=== PATIENT | female | born 1955 | race Hispanic/Latino ===

== ENCOUNTER 2017-12-17 16:01 | Observation (INO) | payer OTHER ==
[~2017-12-17] VITALS: Ht 162.6 cm; Wt 73.2 kg
[~2017-12-17 16:01] MED LIST: ATORVASTATIN CA20 MG PO; CLONIDINE HCL0.2 MG PEG; GABAPENTIN100 MG PO; METFORMIN HCL500 MG PO; OMEPRAZOLE40 MG PO; VASOTEC10 M1 PO; [UNRECOGNIZED DRUG - CODE] SQ
[2017-12-17] MEDS ORDERED: SODIUM CHLORIDE 0.9% 500ML 500 ML IV STA (17:09)
[2017-12-17 17:20] LABS: BASOPHILS # (AUTO) 0.1 (0.0-0.1); BASOPHILS % 0.4 % (0.0-1.0); EOSINOPHILS # (AUTO) 0.2 (0.0-0.4); HEMATOCRIT 31.5 % (34.2-44.1); HEMOGLOBIN 10.4 g/dL (12.0-16.0); LYMPHOCYTES # (AUTO) 2.5 (1.0-3.2); LYMPHOCYTES % 21.1 % (18.0-39.1); MEAN CORPUSCULAR HEMOGLOBIN 29.9 pg (28-32); MEAN CORPUSCULAR VOLUME 90.5 fL (81-99); MONOCYTES # (AUTO) 0.8 (0.2-0.8); MONOCYTES % 6.7 % (4.4-11.3); NEUTROPHILS # (AUTO) 8.3 (2.1-6.9); NEUTROPHILS % 69.5 % (38.7-80.0); PLATELET COUNT 170 x10e3/uL (140-360); RED BLOOD COUNT 3.48 x10e6/uL (3.6-5.1); RED CELL DISTRIBUTION WIDTH 12.7 % (11.7-14.4)
[2017-12-17 17:31] LABS: ALANINE AMINOTRANSFERASE 12 IU/L (0-55); ALBUMIN 3.4 g/dL (3.5-5.0); ALBUMIN/GLOBULIN RATIO 0.9 (0.8-2.0); ALKALINE PHOSPHATASE 94 IU/L (40-150); BLOOD UREA NITROGEN 45 mg/dL (7-26); BUN/CREATININE RATIO 26 (6-25); CALCIUM 9.1 mg/dL (8.4-10.2); CARBON DIOXIDE 23 mmol/L (22-29); CHLORIDE 107 mmol/L (98-107); CREATINE KINASE 102 IU/L (29-168); CREATININE, SERUM 1.72 mg/dL (0.57-1.11); EST GLOMERULAR FILTRATION RATE 30 ML/MIN (60-); GLUCOSE 216 mg/dL (74-118); SODIUM 144 mmol/L (136-145)
--- NOTE | 2017-12-17 18:22 | Diagnostic Imaging Report ---
RIGHT KNEE - 3 VIEWS HISTORY: Swelling, fall, pain COMPARISON: None available. FINDINGS: Bones: Diffusely decreased mineralization of the osseous structures limits bone detail. A mildly comminuted patellar fracture with 1.5 cm distraction of the main fracture fragments. Joints: Mild medial compartment degenerative changes. Soft tissues: Anterior soft tissue swelling. IMPRESSION: Acute, comminuted patellar fracture. Signed by: Dr. Jhonathan Neil D.O., M.M.M. on 12/17/2017 6:18 PM
--- NOTE | 2017-12-17 18:26 | Diagnostic Imaging Report ---
Exam: Head CT without contrast History: Trauma, fall, dizziness Comparison studies: None Technique: Axial images were obtained from the skull base to the vertex. Coronal and sagittal images reconstructed from the axial data. Dose modulation, iterative reconstruction, and/or weight based adjustment of the mA/kV was utilized to reduce the radiation dose to as low as reasonably achievable. Radiation dose: Total DLP: 806 mGy*cm. Estimated effective dose: DLP x 0.015 Intravenous contrast: None Findings: Scalp: No abnormalities. Bones: No fractures, blastic or lytic lesions. Brain sulci: Mildly prominent. Ventricles: Mild compensatory dilatation. No hydrocephalus. Extra-axial spaces: No masses, no fluid collection. Parenchyma: No mass, acute hemorrhage or acute or chronic cortical vascular insults. A few subtle hypodensities in the supratentorial white matter are nonspecific most compatible with chronic microvascular ischemic changes. Sellar/suprasellar region: No abnormalities. Craniocervical junction: Patent foramen magnum. No Chiari one malformation. Incidental findings: Atherosclerotic calcifications in the carotid siphons. Bilateral intraocular lens replacements for previous cataract surgery. Chronic inflammatory changes in the left mastoid air cells which are partially opacified, underpneumatized and with sclerotic changes IMPRESSION: No acute abnormalities. Chronic findings: 1. Mild generalized volume loss. 2. Mild supratentorial microvascular ischemic changes. Signed by: Dr. Jerad Sykes M.D. on 12/17/2017 6:22 PM
[2017-12-17] MEDS: TRAMADOL HCL 50 MG TAB PO PRN (20:23)
[2017-12-17 20:45] VITALS: BP 171/77
[2017-12-17] MEDS ORDERED: LABETALOL HCL100 MG PO (21:33)
[2017-12-17] MEDS ORDERED: FUROSEMIDE40 MG PO (21:33)
[2017-12-17 22:04] VITALS: BP 171/77
--- NOTE | 2017-12-17 22:05 | Diagnostic Imaging Report ---
HUMERUS BILATERAL, HAND THREE VIEWS BILATERAL, FOREARM BILATERAL Comparison: None Clinical history: Fall, Pain of the hands, elbows and shoulders Findings: Limited by portable technique Left humerus, forearm and hand: Lucency along the lateral epicondyle. Age-indeterminate fracture fragment adjacent to the ulnar aspect distal proximal phalanx second digit. Scattered triscaphe and IP degenerative change. Olecranon enthesophyte. Right humerus, forearm and hand: Mineralization is seen along the rotator cuff insertion which can be seen with calcific tendinopathy. Scattered triscaphe and IP degenerative change. Olecranon and medial condyle enthesophyte. Impression: 1. Possible nondisplaced lateral epicondyle fracture, left humerus. Correlate with point tenderness and recommend dedicated nonportable views of the elbow. 2. Age indeterminant fracture of the ulnar aspect distal proximal phalanx second digit, left hand. 3. No acute fracture on the right humerus, forearm or hand. Signed by: Dr Liberty Castle MD on 12/17/2017 10:01 PM
[2017-12-18] VITALS (10 sets, daily range): BP systolic 128–175; BP diastolic 70–78
[2017-12-18 01:09] LABS: CREATINE KINASE 94 IU/L (29-168)
[2017-12-18] MEDS: TRAMADOL HCL 50 MG TAB PO PRN ×3 (02:29→19:51)
[2017-12-18 05:01] LABS: BASOPHILS # (AUTO) 0.1 (0.0-0.1); BASOPHILS % 0.4 % (0.0-1.0); EOSINOPHILS # (AUTO) 0.3 (0.0-0.4); EOSINOPHILS % 2.6 % (0.0-6.0); HEMATOCRIT 29.4 % (34.2-44.1); HEMOGLOBIN 9.7 g/dL (12.0-16.0); LYMPHOCYTES # (AUTO) 2.4 (1.0-3.2); LYMPHOCYTES % 19.5 % (18.0-39.1); MEAN CORPUSCULAR HEMOGLOBIN 30.3 pg (28-32); MEAN CORPUSCULAR VOLUME 91.9 fL (81-99); MONOCYTES # (AUTO) 0.8 (0.2-0.8); MONOCYTES % 6.7 % (4.4-11.3); NEUTROPHILS # (AUTO) 8.6 (2.1-6.9); NEUTROPHILS % 70.4 % (38.7-80.0); PLATELET COUNT 144 x10e3/uL (140-360); RED CELL DISTRIBUTION WIDTH 12.7 % (11.7-14.4)
[2017-12-18 08:58] LABS: CREATINE KINASE 79 IU/L (29-168)
--- NOTE | 2017-12-18 09:09 | Consultation ---
DATE OF CONSULTATION: December 17, 2017 CARDIOLOGY CONSULTATION REASON FOR CONSULTATION: Syncope. HPI: This is a pleasant 62-year-old female that presented status post fall. According to the patient, for 2 weeks she had been having an episode of dizziness, syncope and near fall. The is always around to catch her. She stated yesterday she was getting some for sharp pain. She stated she was going to the mall, felt dizzy and fell, EMS was called. In the ER, she had a CT and x-ray done that showed possible nondisplaced lateral epicondyle fracture and acute patella fracture. CT of the brain showed mild generalized volume loss and microvascular ischemic changes. She denied any chest pain, any palpitations, any shortness of breath, any headache, or diaphoresis. Troponin was negative times 2. EKG showed normal sinus rhythm with no S/T abnormalities. PAST MEDICAL HISTORY: Hypertension, diabetes, hyperlipidemia, gastritis, UTI, and syncope. PAST SURGICAL HISTORY: Cholecystectomy, kidney stone removal and EGD in the past. FAMILY HISTORY: Positive for hypertension and diabetes. SOCIAL HISTORY: No smoking. No drinking. She lives at home with her . MEDICATIONS: She is on atorvastatin, clonidine, Vasotec, Lasix, labetalol, metformin, Protonix, and insulin at home. ALLERGIES: SHE IS ALLERGIC TO DYE. REVIEW OF SYSTEMS: Negative except those mentioned above. She is positive for syncope and fall. PHYSICAL EXAMINATION VITAL SIGNS: Temperature 97, heart rate 78, blood pressure 128/71, respirations 18, oxygen saturation 95% on room air. GENERAL: She is awake, alert and oriented times 3. HEENT: Mucous membranes moist. NECK: Supple. LUNGS: Bilateral clear to auscultation. CARDIOVASCULAR: S1 and S2 present. ABDOMEN: Soft. NEUROLOGICAL: Intact. She is able to move all extremities, but complains of pain on the right arm and shoulder. LABS: Sodium 144, potassium 4, chloride 107, CO2 23, BUN 45, creatinine 1.72, glucose 216. White blood cells 12.1, hemoglobin 9.7, hematocrit 29.4, and platelets 144,000. IMPRESSION 1. Syncope. 2. Status post fall. 3. Renal insufficiency. 4. Acute patella fracture. 5. Hypertension. 6. Diabetes. 7. Hyperlipidemia. 8. Anemia. 9. Leukocytosis. 10. Possible dehydration. ASSESSMENT AND PLAN 1. Will go ahead and get bilateral carotid Doppler to rule out any occlusion. 2. Will get an echocardiogram to assess the LV and the valve function. 3. Will get a 12-lead EKG. 4. Will check UA to rule out any infection. 5. Will go ahead and hold the MICHEAL inhibitor due to the elevated renal function. 6. Will continue her home blood pressure medication. Further cardiac workup pending clinical course. Thank you for this consultation. DICTATED BY ALISSA YOO NP Job#: [id number] LOREN
[2017-12-18] MEDS: PANTOPRAZOLE SOD 40 MG TABEC PO SCH (11:08)
--- NOTE | 2017-12-18 11:48 | History and Physical ---
HISTORY OF PRESENT ILLNESS: She is a 62-year-old female patient who was trying to walk and then trying to get back to her car and suddenly felt severely dizziness and then patient had a fall and had a syncopal episode and having severe left elbow pain and right knee pain. Patient had similar previous episodes and patient suddenly became very dizzy and lightheaded. Patient was saying that she feels like her head moving. ALLERGIES: PATIENT IS ALLERGIC TO FLUORESCENT DYE. PAST MEDICAL HISTORY: Diabetes mellitus, hypertension, hyperlipidemia. SOCIAL HISTORY: Denies smoking, denies using alcohol. FAMILY HISTORY: Diabetes mellitus, hypertension. REVIEW OF SYSTEMS: Recurrent dizziness, weakness and lightheadedness. PHYSICAL EXAMINATION GENERAL: She is an elderly female patient, not in any acute distress. Patient has neck pain, left elbow pain and right knee pain, are tender. VITAL SIGNS: Temperature 98, blood pressure 128/71, pulse rate 79, respirations 18, and O2 sat 94%. HEENT: Normocephalic atraumatic. NECK: No JVD, no lymphadenopathy. LUNGS: Bilateral equal air entry; no rales, no rhonchi. HEART: S1, S2, regular. No murmur, no gallop. ABDOMEN: Soft. Bowel sounds are present. EXTREMITIES: Patient has tenderness in the left elbow area. NEUROLOGICAL: No focal, neurological deficit. ADMITTING IMPRESSION AND DIAGNOSES 1. Syncope. 2. Acute renal insufficiency. 3. Diabetes mellitus. 4. Hypertension. 5. Anemia. 6. Left malleolus fracture, left humerus fracture at the lower end, and right patellar fracture. 7. Renal insufficiency. PLAN: Patient will be admitted with the above diagnoses. We will do echo carotid. Patient had a CT scan of the head and we will do the C-spine x-ray and we will consult neuro and ortho. Telemetry monitoring will be done. We will be measuring orthostatic blood pressure changes. Job#: [id number] NAZ
--- NOTE | 2017-12-18 13:51 | Diagnostic Imaging Report ---
Radiographs of the left elbow - 4 views HISTORY: Pain COMPARISON: None available. FINDINGS: Bones: No acute displaced fracture. Osseous alignment is within normal limits. Joints: Mild scattered degenerative change. No osseous erosion Soft tissues: The soft tissues appear unremarkable. IMPRESSION: Mild scattered degenerative change. No osseous erosion Signed by: Dr. Navin Jovel M.D. on 12/18/2017 1:47 PM
--- NOTE | 2017-12-18 14:06 | Diagnostic Imaging Report ---
Cervical spine, 5 views dated 12/18/2017. History: <Neck pain; status post fall. Discussion: There is normal lordotic curvature of the cervical spine which is visualized on the lateral view from C1 through C7. Disc space narrowing at C5-C6 and C6-C7 is present. There are overhanging osteophytes at C4, C5 and C6. Foraminal encroachment is noted bilaterally at C5-C6. There is no evidence of fracture, subluxation or dislocation. The prevertebral soft tissues are within normal limits as well. IMPRESSION: 1. Degenerative changes as described above. 2. No acute bony abnormality. Signed by: Dr. Rocky Alejandro DO on 12/18/2017 2:03 PM
[2017-12-18] MEDS: LABETALOL HCL 100 MG TAB PO SCH ×2 (15:16→21:23)
[2017-12-18] MEDS ORDERED: LABETALOL HCL 100 MG TAB PO SCH (17:00)
[2017-12-18] MEDS ORDERED: DEXTROSE 50% SYRINGE 50 ML IV PRN (19:15)
[2017-12-18] MEDS: INSULIN LISPRO 100 UNIT/1 ML 3ML VIAL SQ SCH (20:40)
[2017-12-18] MEDS ORDERED: ATORVASTATIN 20 MG TAB PO SCH (21:00)
--- NOTE | 2017-12-18 22:01 | Consultation ---
DATE OF CONSULTATION: December 18, 2017 NEUROLOGY CONSULT HISTORY OF PRESENT ILLNESS: Ms. Michael is a 62-year-old right hand dominant woman with past medical history significant for hypertension, hyperlipidemia, and diabetes mellitus type 2, admitted to [facility] on December 17, 2017, with a syncopal event. On the afternoon of admission, the patient was walking towards her car when she experienced sudden onset of dizziness, which is further described as a lightheaded sensation and numbness in the hands. Ms. Michael does not report chest pain or tightness, palpitations, shortness of breath, tingling, or an epidural rising sensation prior to loss of consciousness. Following the sudden onset of dizziness and numbness in the hands, the patient abruptly lost consciousness falling towards her right side. The duration of unconsciousness is not known. When the patient regained consciousness, she was oriented to person, place and time. She was somewhat confused as to why she was lying on the ground. A witness to the event called 911, and Ms. Michael was transported to [facility] by ambulance. Following an evaluation in the emergency center, the patient was admitted to [facility] under observation status for further evaluation and treatment of her symptoms. Ms. Michael reports experiencing multiple syncopal events over the past 2 weeks. Prior to the onset of these events, there have been no adjustments or additions to her home medication regimen. The patient does report changes to her diet and exercise regimen in an effort to better control her diabetes mellitus. In the past 2 weeks, Ms. Michael has stopped drinking soda. She has replaced sodas with water and tea. Ms. Michael has stopped eating candy. She is making a concerted effort to walk daily. The patient does not report a history of febrile seizures. There is no known family history of seizure disorder. The patient does not report prior head trauma. She does not report prior meningitis or encephalitis. REVIEW OF SYSTEMS: Dizziness which is further described as lightheadedness, numbness affecting both hands, syncope. Pain in the right leg. Otherwise, the 12-point review of systems is negative. PAST MEDICAL HISTORY: Hypertension, hyperlipidemia, diabetes mellitus type 2, gastroesophageal reflux disease. PAST SURGICAL HISTORY: Cholecystectomy, surgery to remove kidney stones, bilateral cataract removal. PAST HOSPITALIZATIONS: Surgeries/procedures as listed, childbirth times 1. FAMILY MEDICAL HISTORY: The patient's paternal and maternal grandparents are . Their medical histories are unknown. The patient's father is from coronary artery disease with a myocardial infarction. The patient's mother is alive. Her medical history is unknown. Ms. Michael has 4 siblings, 2 brothers and 2 sisters, all of whom are alive. One sister is healthy. The remaining siblings have diabetes mellitus type 2. The patient has 1 child, a daughter, who is alive and healthy. SOCIAL HISTORY: The patient is single, but is engaged to be . The patient is retired. Ms. Michael does not report current or prior tobacco, alcohol, or recreational drug use. HOME MEDICATIONS: Please see the list of home medications available in the electronic medical record. ALLERGIES: NO KNOWN DRUG ALLERGIES. NO KNOWN FOOD ALLERGIES. NO KNOWN ALLERGIES TO LATEX. THE PATIENT DOES REPORT AN IODINE ALLERGY. PHYSICAL EXAMINATION: VITAL SIGNS: Height pending. Weight pending. BMI pending. Blood pressure pending, pulse pending, respiratory rate pending, oxygen saturation pending. GENERAL: The patient is awake and alert, does not appear distressed. HEENT: Normocephalic, atraumatic. Pupils are surgical. Moist mucous membranes. NECK: Supple. No appreciable thyromegaly. No appreciable carotid bruits. CARDIOVASCULAR: S1, S2, regular rate and rhythm. No murmurs, rubs, or gallops. RESPIRATORY: Clear to auscultation bilaterally. No wheezes, rhonchi or rales. EXTREMITIES: The skin is warm and dry. No clubbing, cyanosis, or edema. The posterior tibial and dorsalis pedis pulses are 1+ and symmetric. The right leg is in a brace. SKIN: No rashes or lesions. NEUROLOGIC Memory/Attention: The patient is awake and alert. Oriented to person, place, time, and situation. Cranial Nerves: Cranial nerve I--not tested. Cranial nerve II, III, IV, and --pupils are surgical. Extraocular movements intact. No nystagmus. Cranial nerve V--sensation to light touch and pinprick is intact in the bilateral V1 through V3 distributions. Strength of the temporalis and masseter muscles is within normal limits. Cranial nerve VII--the face is symmetric as are all facial movements. Strength is within normal limits. Cranial nerve VIII--hearing is diminished to finger rub on the left. Cranial nerve IX, X--the soft palate elevates equally and symmetrically. Cranial nerve XI--normal strength of the bilateral sternocleidomastoid and trapezius muscles. Cranial nerve XII--the tongue protrudes in midline and moves symmetrically from side to side. Strength: The right leg is not examined as it is in a brace. Bulk is normal. Strength is 5/5 in the bilateral deltoids, biceps, triceps, wrist flexors and extensors, finger flexors and extensors, intrinsic hand muscles, left hip flexors, left knee flexors and extensors, left ankle dorsiflexion and plantar flexion, and left intrinsic foot muscles. Tone is normal. DTRs: The right leg is not examined as it is in a brace. Deep tendon reflexes are 1+ and symmetric at the triceps, biceps, brachioradialis, left patella, and left Achilles. Plantar responses are flexor bilaterally. Sensation: Sensation is intact to light touch and pinprick in both arms and both legs. Cerebellar: [id number]-[id number] and heel-mason movements are intact without dysmetria or other impairment. Gait: Deferred. Speech: Spontaneous speech is normal without appreciable dysarthria or aphasia. Repetition is intact. Involuntary Movements: None. Pronator Drift: None. LABORATORY DATA: The patient's comprehensive metabolic panel is significant for an elevated anion gap of 18, BUN of 45, creatinine of 1.72, estimated GFR of 30, serum glucose of 216. Cardiac enzymes are negative times 3. Her CBC with differential and platelets reveals a white blood cell count of 12.18 with a normal differential. The hemoglobin and hematocrit are 9.7 and 29.4, respectively. The platelet count is 144,000. DIAGNOSTIC STUDIES: Electrocardiogram, December 17, 2017: Normal sinus rhythm at [address] of the brain without contrast, December 17, 2017: On my review, there is no evidence of recent large territorial ischemia, hemorrhage, mass, or mass effect. There is diffuse cerebral atrophy, appropriate for age. There are findings compatible with mild chronic small vessel ischemic disease. Right knee x-ray, December 17, 2017: Acute, comminuted patellar fracture. Humerus x-ray, December 17, 2017: 1. Possible nondisplaced lateral epicondyle fracture, left humerus. Correlate with point tenderness and recommend dedicated portable views of the elbow. 2. Age indeterminate fracture of the ulnar aspect distal proximal phalanx 2nd digit, left hand. 3. No acute fracture of right humerus, forearm, or hand. Hand x-ray, December 17, 2017: 1. Possible nondisplaced lateral epicondyle fracture, left humerus. Correlate with point tenderness and recommend dedicated portable views of the elbow. 2. Age indeterminate fracture of the ulnar aspect distal proximal phalanx 2nd digit, left hand. 3. No acute fracture of right humerus, forearm, or hand. X-ray forearm, December 17, 2017: 1. Possible nondisplaced lateral epicondyle fracture, left humerus. Correlate with point tenderness and recommend dedicated portable views of the elbow. 2. Age indeterminate fracture of the ulnar aspect distal proximal phalanx 2nd digit, left hand. 3. No acute fracture of right humerus, forearm, or hand. X-ray cervical spine, December 18, 2017: 1. Degenerative changes as described above. 2. No acute bony abnormality. X-ray left elbow December 18, 2017: Mild scattered degenerative change. No osseous erosion. Bilateral carotid artery ultrasound with Doppler, December 18, 2017: There is no atherosclerosis of the right carotid artery system. There is atherosclerosis without hemodynamically significant stenosis at the left carotid bulb, left carotid bifurcation, and left internal carotid artery. Flow is antegrade in the bilateral vertebral arteries. ASSESSMENT AND PLAN: Ms. Michael is a 62-year-old right hand dominant woman with past medical history significant for hypertension, hyperlipidemia, diabetes mellitus type 2, and multiple syncopal events over the past 2 weeks, admitted to [facility] on December 17, 2017, status post a syncopal event resulting in a fracture of the right patella. At present, the patient's neurological examination is nonfocal. Her laboratory data and other diagnostic studies have been reviewed and are documented above. There was low suspicion for neurological cause of the patient's multiple syncopal events. Further cardiac evaluation is recommended. Thank you for this consultation. There are no recommendations from neurology service at this time. TIME SPENT: 70 minutes. Job#: [id number] ARIELLA GARCIA
[2017-12-19] MEDS: TRAMADOL HCL 50 MG TAB PO PRN (02:54)
[2017-12-19 05:00] VITALS: BP 145/69
[2017-12-19 05:24] LABS: BASOPHILS # (AUTO) 0.1 (0.0-0.1); BASOPHILS % 0.6 % (0.0-1.0); EOSINOPHILS # (AUTO) 0.3 (0.0-0.4); EOSINOPHILS % 2.1 % (0.0-6.0); HEMATOCRIT 28.1 % (34.2-44.1); HEMOGLOBIN 9.2 g/dL (12.0-16.0); LYMPHOCYTES # (AUTO) 2.5 (1.0-3.2); LYMPHOCYTES % 20.1 % (18.0-39.1); MEAN CORPUSCULAR HEMOGLOBIN 30.4 pg (28-32); MEAN CORPUSCULAR HGB CONC 32.7 g/dL (31-35); MEAN CORPUSCULAR VOLUME 92.7 fL (81-99); MONOCYTES # (AUTO) 1.2 (0.2-0.8); MONOCYTES % 9.9 % (4.4-11.3); NEUTROPHILS # (AUTO) 8.1 (2.1-6.9); NEUTROPHILS % 66.7 % (38.7-80.0); PLATELET COUNT 142 x10e3/uL (140-360); RED BLOOD COUNT 3.03 x10e6/uL (3.6-5.1); RED CELL DISTRIBUTION WIDTH 12.6 % (11.7-14.4)
[2017-12-19 05:49] LABS: ALBUMIN/GLOBULIN RATIO 0.9 (0.8-2.0); ANION GAP 15.8 mmol/L (8-16); CALCIUM 8.9 mg/dL (8.4-10.2); CREATININE, SERUM 1.1 mg/dL (0.57-1.11); POTASSIUM 3.8 mmol/L (3.5-5.1)
[2017-12-19 08:00] VITALS: BP 146/68
[2017-12-19] MEDS: PANTOPRAZOLE SOD 40 MG TABEC PO SCH (08:20)
[2017-12-19 08:40] VITALS: BP 146/68
[2017-12-19] MEDS: INSULIN LISPRO 100 UNIT/1 ML 3ML VIAL SQ SCH ×2 (08:40→11:45)
[2017-12-19] MEDS: LABETALOL HCL 100 MG TAB PO SCH (09:23)
[2017-12-19] MEDS ORDERED: MECLIZINE HCL 12.5 MG TAB PO PRN (09:45)
[2017-12-19] MEDS: SODIUM CHLORIDE 0.9% 250ML 250 ML IV SCH ×3 (10:18→12:16)
[2017-12-19 11:31] VITALS: BP 150/67
--- NOTE | 2017-12-19 12:14 | Diagnostic Imaging Report ---
EXAM: CT Chest WITH contrast INDICATION: Rule out pulmonary embolism COMPARISON: None TECHNIQUE: Chest was scanned utilizing a multidetector helical scanner from the lung apex through the level of the diaphragm after administration of IV contrast. Thin section reconstructions were obtained with special concentration on the pulmonary arteries. Coronal and sagittal reformations were obtained. Pulmonary embolism protocol was performed. IV CONTRAST: 77 cc of Isovue-370 RADIATION DOSE: Total DLP: 467 mGy*cm Estimated effective dose: (DLP x 0.014 x size factor) mSv COMPLICATIONS: None FINDINGS: LINES/ TUBES: None. LUNGS AND AIRWAYS: No filling defect is identified within the pulmonary arteries to the segmental level. The central airways are patent. Patchy dependent atelectasis bilaterally, most pronounced in the lower lobes. Mild mosaic attenuation of the lungs, which may reflect air trapping. PLEURA: The pleural spaces are clear. HEART AND MEDIASTINUM: The thyroid gland is normal. No mediastinal, hilar or axillary lymphadenopathy. There is no pericardial effusion. Coronary and aortic atherosclerotic calcifications are noted. Main pulmonary artery measures 2.6 cm in diameter . UPPER ABDOMEN: Limited non-contrast views of the upper abdomen show no abnormality within the visualized liver, spleen, pancreas, or kidneys. The adrenal glands are normal. BONES: There are degenerative changes in the thoracic spine. SOFT TISSUES: Unremarkable. IMPRESSION: No evidence of pulmonary embolism or other acute intrathoracic abnormality. Coronary and aortic atherosclerosis. Signed by: Dr. Kelley Rivera MD on 12/19/2017 12:10 PM
[2017-12-19 15:30] VITALS: BP 167/74
[2017-12-19] MEDS ORDERED: TYLENOL WITH C1 EACH PO (15:35)
[2017-12-19] MEDS ORDERED: IOPAMIDOL 370 MG/ML 200 ML INFUS..BTL INJ ONE (18:28)
[2017-12-19] MEDS ORDERED: SODIUM CHLORIDE 0.9% 50ML 50 ML ONE (18:28)
== END 2017-12-19 16:03 | disposition home or self-care (01) ==
LOC: ER 16:01 → ERHOLD 17:57 → IMCU 20:45
PROVIDERS: ADMIT Internal Medicine; ATTEND Internal Medicine
DX: R55 Syncope and collapse (principal); E11.9 Type 2 diabetes mellitus without complications; I10 Essential (primary) hypertension; E78.5 Hyperlipidemia, unspecified; Z91.041 Radiographic dye allergy status; N28.9 Disorder of kidney and ureter, unspecified; D64.9 Anemia, unspecified; S82.892A Other fracture of left lower leg, initial encounter for closed fracture; W18.39XA Other fall on same level, initial encounter; Z87.442 Personal history of urinary calculi; K21.9 Gastro-esophageal reflux disease without esophagitis; S42.435A Nondisplaced fracture (avulsion) of lateral epicondyle of left humerus, initial encounter for closed fracture; S82.041A Displaced comminuted fracture of right patella, initial encounter for closed fracture; R07.9 Chest pain, unspecified
CPT/HCPCS: 36415 ×2; 70450; 71260; 72050; 73060; 73080; 73090; 73130; 73562; 80053 ×2; 82550 ×2; 82553 ×2; 82948 ×3; 84484 ×2; 85025 ×3; 93005; 93306; 93880; 97139; 97162; 97530; 99284; G0378 ×3; G8978; G8979; J7040; J7050; Q9967; S0164 ×2

== ENCOUNTER 2018-06-05 13:14 | Inpatient (IN) | payer OTHER ==
[~2018-06-05] VITALS: Ht 162.6 cm; Wt 72.3 kg
[~2018-06-05 13:14] MED LIST changes: +FUROSEMIDE40 MG PO; +LABETALOL HCL100 MG PO; +TYLENOL WITH C1 EACH PO
--- OUTSIDE RECORDS SUMMARY | 2018-06-05 13:17 | XMS REPORT ---
Author Author [facility] Address Unknown Phone Unavailable Care Team Providers Care Ophthalmologist Retina Specialist Name Role Phone Aba PRIETO Unavailable Unavailable Problems This patient has no known problems. Allergies, Adverse Reactions, Alerts This patient has no known allergies or adverse reactions. Medications This patient has no known medications. Results Test Description Test Time Test Comments Text Results Atomic Results Result Comments CT CHEST W 2017-12-19 11:54:00 [place] [address] Patient Name: BHAVANA CHU MR #: [id number] : 1955 Age/Sex: 62/F Req #: [id number] [facility] Physician: DINORAH PRIETO MD Ordered by: ALISSA YOO CIGAR MAKING SUPERVISOR Report #: [id number] Location: [facility] Room/Bed: [place] [address] Procedure: [id number] CT/CT CHEST W Exam Date: 12/19/17 Exam Time: 1105 REPORT STATUS: Signed EXAM: CT Chest WITH contrast INDICATION: Rule out pulmonary embolism COMPARISON: None TECHNIQUE: Chest was scanned utilizing a multidetector helical scanner from the lung apex through the level of the diaphragm after administration of IV contrast. Thin section reconstructions were obtained with special concentration on the pulmonary arteries. Coronal and sagittal reformations were obtained. Pulmonary embolism protocol was performed. IV CONTRAST: 77 cc of Isovue-370 RADIATION DOSE: Total DLP: 467 mGy*cm Estimated effective dose: (DLP x 0.014 x size factor) mSv COMPLICATIONS: None FINDINGS: LINES/ TUBES: None. LUNGS AND AIRWAYS: No filling defect is identified within the pulmonary arteries to the segmental level. The central airways are patent. Patchy dependent atelectasis bilaterally, most pronounced in the lower lobes. Mild mosaic attenuation of the lungs, which may reflect air trapping. PLEURA: The pleural spaces are clear. HEART AND MEDIASTINUM: The thyroid gland is normal. No mediastinal, hilar or axillary lymphadenopathy. There is no pericardial effusion. Coronary and aortic atherosclerotic calcif ications are noted. Main pulmonary artery measures 2.6 cm in diameter . UPPER ABDOMEN: Limited non-contrast views of the upper abdomen show no abnormality within the visualized liver, spleen, pancreas, or kidneys. The adrenal glands are normal. BONES: There are degenerative changes in the thoracic spine. SOFT TISSUES: Unremarkable. IMPRESSION: No evidence of pulmonary embolism or other acute intrathoracic abnormality. Coronary and aortic atherosclerosis. Signed by: Dr. Rosanne Solitario MD on 12/19/2017 12:10 PM Dictated By: ROSANNE SOLITARIO MD 1210 Transcribed By: PHILIPP on 12/19/17 1210 COPY TO: ALISSA YOO NP CERVICAL SPINE 4 OR 5 VIEWS 2017-12-18 13:58:00 [place] [address] Patient Name: BHAVANA CHU MR #: [id number] : 1955 Age/Sex: 62/F Req #: [id number] Adm Physician: DINORAH PRIETO MD Ordered by: DINORAH PRIETO MD Report #: [id number] Location: [facility] Room/Bed: [place] [address] Procedure: [id number] DX/CERVICAL SPINE 4 OR 5 VIEWS Exam Date: 12/18/17 Exam Time: 1325 REPORT STATUS: Signed Cervical spine, 5 views dated 12/18/2017. History: <Neck pain; status post fall. Discussion: There is normal lordotic curvature of the cervical spine which is visualized on the lateral view from C1 through C7. Disc space narrowing at C5-C6 and C6-C7 is present. There are overhanging osteophytes at C4, C5 and C6. Foraminal encroachment is noted bilaterally at C5-C6. There is no evidence of fracture, subluxation or dislocation. The prevertebral soft tissues are within normal limits as well. IMPRESSION: 1. Degenerative changes as described above. 2. No acute bony abnormality. Signed by: Dr. Rocky Alejandro DO on 12/18/2017 2:03 PM Dictated By: ROCKY ALEJANDRO DO 1403 Transcribed By: PHILIPP on 12/18/17 1403 COPY TO: DINORAH PRIETO MD ELBOW LEFT COMPLETE 2017-12-18 13:46:00 [place] [address] Patient Name: BHAVANA CHU MR #: [id number] : 1955 Age/Sex: 62/F Req #: [id number] Adm Physician: DINORAH PRIETO MD Ordered by: EDI JOE MD Report #: [id number] Location: [facility] Room/Bed: [place] [address] Procedure: [id number] DX/ELBOW LEFT COMPLETE Exam Date: 12/18/17 Exam Time: 1325 REPORT STATUS: Signed Radiographs of the left elbow - 4 views HISTORY: Pain COMPARISON: None available. FINDINGS: Bones: No acute displaced fracture. Osseous alignment is within normal limits. Joints: Mild scattered degenerative change. No osseous erosion Soft tissues: The soft tissues appear unremarkable. IMPRESSION: Mild scattered degenerative change. No osseous erosion Signed by: Dr. Jhon Jovel M.D. on 12/18/2017 1:47 PM Dictated By: JHON JOVEL MD, MD 46 Transcribed By: PHILIPP on 12/18/171346 COPY TO: EDI JOE MD HAND THREE VIEWS BILATERAL 2017-12-17 21:50:00 [place] [address] Patient Name: BHAVANA CHU MR #: [id number] : 1955 Age/Sex: 62/F Req #: [id number] Adm Physician: DINORAH PRIETO MD Ordered by: DINORAH PRIETO MD Report #: [id number] Location: [facility] Room/Bed: [place] [address] Procedure: [id number] DX/HAND THREE VIEWS BILATERAL Exam Date: 12/17/17 Exam Time: 2034 REPORT STATUS: Signed HUMERUS BILATERAL, HAND THREE VIEWS BILATERAL, FOREARM BILATERAL Comparison: None Clinical history: Fall, Pain of the hands, elbows and shoulders Findings: Limited by portable technique Left humerus, forearm and hand: Lucency along the lateral epicondyle. Age-indeterminate fracture fragment adjacent to the ulnar aspect distal proximal phalanx second digit. Scattered triscaphe and IP degenerative change. Olecranon enthesophyte. Right humerus, forearm and hand: Mineralization is seen along the rotator cuff insertion which can be seen with calcific tendinopathy. Scattered triscaphe and IP degenerative change. Olecranon and medial condyle enthesophyte. Impression: 1. Possible nondisplaced lateral epicondyle fracture, left humerus. Correlate with point tenderness and recommend dedicated nonportable views of the elbow. 2. Age indeterminant fracture of the ulnar aspect distal proximal phalanx second digit, left hand. 3. No acute fracture on the right humerus, forearm or hand. Signed by: Dr Camden Castle MD on 12/17/2017 10:01 PM Dictated By: CAMDEN CASTLE MD 00 Transcribed By: PHILIPP on 12/17/172200 COPY TO: DINORAH PRIETO MD FOREARM BILATERAL 2017-12-17 21:50:00 [place] [address] Patient Name: BHAVANA CHU MR #: [id number] : 1955 Age/Sex: 62/F Req #: [id number] Adm Physician: DINORAH PRIETO MD Ordered by: DINORAH PRIETO MD Report #: [id number] Location: [facility] Room/Bed: [place] [address] Procedure: [id number] DX/FOREARM BILATERAL Exam Date: 12/17/17 Exam Time: 2034 REPORT STATUS: Signed HUMERUS BILATERAL, HAND THREE VIEWS BILATERAL, FOREARM BILATERAL Comparison: None Clinical history: Fall, Pain of the hands, elbows and shoulders Findings: Limited by portable technique Left humerus, forearm and hand: Lucency along the lateral epicondyle. Age-indeterminate fracture fragment adjacent to the ulnar aspect distal proximal phalanx second digit. Scattered triscaphe and IP degenerative change. Olecranon enthesophyte. Right humerus, forearm and hand: Mineralization is seen along the rotator cuff insertion which can be seen with calcific tendinopathy. Scattered triscaphe and IP degenerative change. Olecranon and medial condyle enthesophyte. Impression: 1. Possible nondisplaced lateral epicondyle fracture, left humerus. Correlate with point tenderness and recommend dedicated nonportable views of the elbow. 2. Age indeterminant fracture of the ulnar aspect distal proximal phalanx second digit, left hand. 3. No acute fracture on the right humerus, forearm or hand. Signed by: Dr Camden Castle MD on 12/17/2017 10:01 PM Dictated By: CAMDEN CASTLE MD 00 Transcribed By: PHILIPP on 12/17/172200 COPY TO: DINORAH PRIETO MD HUMERUS BILATERAL 2017-12-17 21:50:00 [place] [address] Patient Name: BHAVANA CHU MR #: [id number] : 1955 Age/Sex: 62/F Req #: [id number] Adm Physician: DINORAH PRIETO MD Ordered by: DINORAH PRIETO MD Report #: [id number] Location: [facility] Room/Bed: [place] [address] Procedure: [id number] DX/HUMERUS BILATERAL Exam Date: 12/17/17 Exam Time: 2034 REPORT STATUS: Signed HUMERUS BILATERAL, HAND THREE VIEWS BILATERAL, FOREARM BILATERAL Comparison: None Clinical history: Fall, Pain of the hands, elbows and shoulders Findings: Limited by portable technique Left humerus, forearm and hand: Lucency along the lateral epicondyle. Age-indeterminate fracture fragment adjacent to the ulnar aspect distal proximal phalanx second digit. Scattered triscaphe and IP degenerative change. Olecranon enthesophyte. Right humerus, forearm and hand: Mineralization is seen along the rotator cuff insertion which can be seen with calcific tendinopathy. Scattered triscaphe and IP degenerative change. Olecranon and medial condyle enthesophyte. Impression: 1. Possible nondisplaced lateral epicondyle fracture, left humerus. Correlate with point tenderness and recommend dedicated nonportable views of the elbow. 2. Age indeterminant fracture of the ulnar aspect distal proximal phalanx second digit, left hand. 3. No acute fracture on the right humerus, forearm or hand. Signed by: Dr Camden Castle MD on 12/17/2017 10:01 PM Dictated By: CAMDEN CASTLE MD 00 Transcribed By: PHILIPP on 12/17/172200 COPY TO: DINORAH PRIETO MD CT BRAIN WO 2017-12-17 18:18:00 [place] [address] Patient Name: BHAVANA CHU MR #: [id number] : 1955 Age/Sex: 62/F Req #: [id number] Adm Physician: DINORAH PRIETO MD Ordered by: SELENA SUAREZ MD Report #: [id number] Location: [facility] Room/Bed: [place] [address] Procedure: [id number] CT/CT BRAIN WO Exam Date: 12/17/17 Exam Time: 1753 REPORT STATUS: Signed Exam: Head CT without contrast History: Trauma, fall, dizziness Comparison studies: None Technique: Axial images were obtained from the skull base to the vertex. Coronal and sagittal images reconstructed from the axial data. Dose modulation, iterative reconstruction, and/or weight based adjustment of the mA/kV was utilized to reduce the radiation dose to as low as reasonably achievable. Radiation dose: Total DLP: 806 mGy*cm. Estimated effective dose: DLP x 0.015 Intravenous contrast: None Findings: Scalp: No abnormalities. Bones: No fractures, blastic or lytic lesions. Brain sulci: Mildly prominent. Ventricles: Mild compensatory dilatation. No hydrocephalus. Extra-axial spaces: No masses, no fluid collection. Parenchyma: No mass, acute hemorrhage or acute or chronic cortical vascular insults. A few subtle hypodensities in the supratentorial white matter are nonspecific most compatible with chronic microvascular ischemic changes. Sellar/suprasellar region: No abnormalities. Craniocervical junction: Patent foramen magnum. No Chiari one malformation. Incidental findings: Atherosclerotic calcifications in the carotid siphons. Bilateral intraocular lens replacements for previous cataract surgery. Chronic inflammatory changes in the left mastoid air cells which are partially opacified, underpneumatized and with sclerotic changes IMPRESSION: No acute abnormalities. Chronic findings: 1. Mild generalized volume loss. 2. Mild supratentorial microvascular ischemic changes. Signed by: Dr. Parish Sykes M.D. on 12/17/2017 6:22 PM Dictated By: PARISH SYKES MD 21 Transcribed By: PHILIPP on 12/17/171821 COPY TO: SELENA SUAREZ MD KNEE RIGHT THREE VIEWS 2017-12-17 18:17:00 [place] [address] Patient Name: BHAVANA CHU MR #: [id number] : 1955 Age/Sex: 62/F Req #: [id number] Adm Physician: DINORAH PRIETO MD Ordered by: SELENA SUAREZ MD Report #: [id number] Location: [facility] Room/Bed: [place] [address] Procedure: [id number] DX/KNEE RIGHT THREE VIEWS Exam Date: 12/17/17 Exam Time: 1800 REPORT STATUS: Signed RIGHT KNEE - 3 VIEWS HISTORY: Swelling, fall, pain COMPARISON: None available. FINDINGS: Bones: Diffusely decreased mineralization of the osseous structures limits bone detail. A mildly comminuted patellar fracture with 1.5 cm distraction of the main fracture fragments. Joints: Mild medial compartment degenerative changes. Soft tissues: Anterior soft tissue swelling. IMPRESSION: Acute, comminuted patellar fracture. Signed by: Adela FloresOLele, M.M.M. on 12/17/2017 6:18 PM Dictated By: JULES SOTO DO 17 Transcribed By: PHILIPP on 12/17/171817 COPY TO: SELENA SUAREZ MD
[2018-06-05] MEDS ORDERED: SODIUM CHLORIDE 0.9% 1000ML 1,000 ML IV SCH (14:15)
[2018-06-05 14:19] LABS: CLARITY,URINE SL CLOUDY (CLEAR); COLOR,URINE YELLOW (YELLOW); LEUKOCYTE ESTERASE ,URINE NEGATIVE (NEGATIVE); NITRITE,URINE NEGATIVE (NEGATIVE)
[2018-06-05 14:20] LABS: BILIRUBIN,URINE NEGATIVE (NEGATIVE); KETONES,URINE NEGATIVE (NEGATIVE); PROTEIN,URINE DIPSTICK 2+ (NEGATIVE); URINE UROBILINOGEN 1 mg/dL (0.2 - 1)
[2018-06-05 14:44] LABS: AMORPHOUS SEDIMENT,URINE FEW (FEW); BACTERIA,URINE MODERATE /HPF; EPITHELIAL CELLS,URINE MANY /LPF; TRANSITIONAL EPI CELLS,URINE MODERATE
[2018-06-05 15:07] LABS: BASOPHILS % 0.4 % (0.0-1.0); HEMATOCRIT 37.9 % (34.2-44.1); LYMPHOCYTES % 14.2 % (18.0-39.1); MEAN CORPUSCULAR HEMOGLOBIN 29.4 pg (28-32); MEAN CORPUSCULAR HGB CONC 31.7 g/dL (31-35); MEAN CORPUSCULAR VOLUME 92.9 fL (81-99); MONOCYTES # (AUTO) 0.5 (0.2-0.8); MONOCYTES % 6.6 % (4.4-11.3); NEUTROPHILS # (AUTO) 5.4 (2.1-6.9); NEUTROPHILS % 78.7 % (38.7-80.0); PLATELET COUNT 177 x10e3/uL (140-360); RED BLOOD COUNT 4.08 x10e6/uL (3.6-5.1); RED CELL DISTRIBUTION WIDTH 14.5 % (11.7-14.4)
[2018-06-05 15:20] LABS: INR 1.03
[2018-06-05 15:21] LABS: PARTIAL THROMBOPLASTIN TIME 28.8 seconds (23.8-35.5)
[2018-06-05 15:27] LABS: ALBUMIN 2.4 g/dL (3.5-5.0); ALBUMIN/GLOBULIN RATIO 0.6 (0.8-2.0); ANION GAP 11.6 mmol/L (8-16); CALCIUM 8.8 mg/dL (8.4-10.2); CREATININE, SERUM 1.38 mg/dL (0.57-1.11); POTASSIUM 3.6 mmol/L (3.5-5.1)
[2018-06-05 15:35] LABS: CREATINE KINASE MB 3.6 ng/mL (0-5.0)
--- NOTE | 2018-06-05 16:27 | Diagnostic Imaging Report ---
EXAMINATION: PA and lateral views of the chest. COMPARISON: None CLINICAL HISTORY: Nausea DISCUSSION: Lines/tubes: None. Lungs: Bilateral lower lung atelectasis. Pleura: Bilateral small effusions. Heart and mediastinum: Prominent heart size. Bones and soft tissues: No acute bony abnormalities. IMPRESSION: Mild cardiomegaly with small effusions and adjacent atelectasis. Signed by: Dr. Henry Padilla M.D. on 06/05/2018 4:24 PM
[2018-06-05] MEDS ORDERED: ASPIRIN 325 MG TAB ONE (17:00)
[2018-06-05] MEDS ORDERED: ASPIRIN 81 MG CHEW TAB PO ONE (17:00)
[2018-06-05] MEDS ORDERED: NITROGLYCERIN 2% OINT 1 GM PKT TOP ONE (17:00)
[2018-06-05] MEDS ORDERED: HEPARIN SOD (PORCINE) 5,000 UNIT/ML VIAL IV ONE (17:15)
[2018-06-05] MEDS ORDERED: FUROSEMIDE INJ 10 MG/ML 4 ML VIAL IV ONE (17:30)
[2018-06-05] MEDS ORDERED: DIATRIZOATE MEGL/DIATRIZOA SOD 30 ML BTL PO ONE (18:12)
[2018-06-05] MEDS ORDERED: ONDANSETRON HCL INJ 2MG/ML 2ML 2 MG/ML VIAL IV PRN (18:15)
[2018-06-05] MEDS ORDERED: MORPHINE SULFATE 2 MG/ML SYR 1ML IV PRN (18:15)
[2018-06-05] MEDS ORDERED: NITROGLYCERIN 0.4 MG SUBL SL PRN (18:15)
[2018-06-05 18:21] LABS: AMYLASE 24 U/L (25-125)
[2018-06-05 18:26] LABS: LIPASE < 4 U/L (8-78)
[2018-06-05] MEDS ORDERED: MORPHINE SULFATE INJ 4 MG/ML INJ 1ML IV PRN (18:30)
[2018-06-05] MEDS ORDERED: HYDRALAZINE HCL 20 MG/ML VIAL IV ONE (18:30)
[2018-06-05] MEDS: HEPARIN IV SCH (19:00)
[2018-06-05] MEDS: [UNRECOGNIZED DRUG - OTHER] IV SCH (19:00)
[2018-06-05] MEDS: FUROSEMIDE INJ 10 MG/ML 4 ML VIAL IV SCH (19:01)
[2018-06-05] MEDS: FAMOTIDINE 20 MG/2 ML VIAL IV SCH (19:55)
--- NOTE | 2018-06-05 20:55 | Diagnostic Imaging Report ---
EXAM: CT Abdomen and Pelvis WITHOUT contrast INDICATION: Dizzy. Nausea. Abdominal pain. ^MARISOL ABD PAIN, ORAL CONTRAST ONLY COMPARISON: CT chest 12/19/2017. CT abdomen pelvis 10/03/2016. TECHNIQUE: Abdomen and pelvis were scanned utilizing a multidetector helical scanner from the lung base to the pubic symphysis without administration of IV contrast. Absence of intravenous contrast decreases sensitivity for detection of focal lesions and vascular pathology. Coronal and sagittal reformations were obtained. Routine protocol was performed. IV CONTRAST: None ORAL CONTRAST: Gastrografin COMPLICATIONS: None RADIATION DOSE: Total DLP: 539.93 mGy*cm Estimated effective dose: (DLP x 0.015 x size factor) mSv CTDIvol has been reviewed. It is below the limits set by the Radiation Protocol Committee (RPC). FINDINGS: LINES and TUBES: None. LOWER THORAX: Moderate bilateral pleural effusions, right greater than left. Bilateral lung base atelectasis, predominantly involving both lower lobes. Coronary artery calcifications. HEPATOBILIARY: No focal hepatic lesions. No biliary ductal dilation. GALLBLADDER: There are cholecystectomy clips. SPLEEN: No splenomegaly. PANCREAS: No focal masses or ductal dilatation. ADRENALS: No adrenal nodules KIDNEYS/URETERS: No hydronephrosis. No cystic or solid mass lesions. No stones. GI TRACT: No abnormal distention, wall thickening, or evidence of bowel obstruction. Colonic diverticula within the sigmoid colon. There is mild surrounding inflammatory changes around this segment. Mild wall thickening of the remaining colon, possibly secondary to partial collapse. Appendix is normal. PELVIC ORGANS/BLADDER: Unremarkable. LYMPH NODES: No lymphadenopathy. VESSELS: There is moderate atherosclerotic disease in the aorta and major arterial branches. PERITONEUM / RETROPERITONEUM: Trace free fluid. No free air. BONES: Unremarkable. SOFT TISSUES: Unremarkable. IMPRESSION: 1. Colonic diverticulosis with subtle inflammatory changes around the sigmoid colon. This may represent mild diverticulitis. However, there is a trace fluid in the abdomen and pelvis. 2. Moderate bilateral pleural effusions with associated atelectasis. Signed by: Dr. Arpit Morales M.D. on 06/05/2018 8:52 PM
[2018-06-05 21:10] VITALS: BP 165/77
[2018-06-05 21:32] VITALS: BP 140/82
[2018-06-06] VITALS (9 sets, daily range): BP systolic 160–200; BP diastolic 76–96
[2018-06-06] MEDS: NITROGLYCERIN 2% OINT 1 GM PKT TOP SCH ×4 (00:58→19:01)
[2018-06-06 01:27] LABS: BASOPHILS % 0.4 % (0.0-1.0); EOSINOPHILS % 0.1 % (0.0-6.0); HEMATOCRIT 32.5 % (34.2-44.1); HEMOGLOBIN 10.6 g/dL (12.0-16.0); LYMPHOCYTES # (AUTO) 1.3 (1.0-3.2); LYMPHOCYTES % 16.9 % (18.0-39.1); MEAN CORPUSCULAR HEMOGLOBIN 29.5 pg (28-32); MEAN CORPUSCULAR HGB CONC 32.6 g/dL (31-35); MEAN CORPUSCULAR VOLUME 90.5 fL (81-99); MONOCYTES # (AUTO) 0.7 (0.2-0.8); NEUTROPHILS # (AUTO) 5.3 (2.1-6.9); NEUTROPHILS % 72.1 % (38.7-80.0); PLATELET COUNT 157 x10e3/uL (140-360); RED BLOOD COUNT 3.59 x10e6/uL (3.6-5.1); RED CELL DISTRIBUTION WIDTH 14.4 % (11.7-14.4)
[2018-06-06 01:50] LABS: CREATINE KINASE MB 4.4 ng/mL (0-5.0)
[2018-06-06] MEDS: FAMOTIDINE 20 MG/2 ML VIAL IV SCH ×2 (05:58→19:01)
--- NOTE | 2018-06-06 07:00 | NUR ---
RECEIVED BEDSIDE SHIFT REPORT FROM NIGHT RN. PT DENIES NEEDS AT THIS TIME.
[2018-06-06 07:06] LABS: ALBUMIN 1.9 g/dL (3.5-5.0); ALBUMIN/GLOBULIN RATIO 0.6 (0.8-2.0); ANION GAP 11.2 mmol/L (8-16); CALCIUM 8.1 mg/dL (8.4-10.2); CHOL/HDL RATIO 3.9 (3.0-3.6); CREATININE, SERUM 1.11 mg/dL (0.57-1.11); POTASSIUM 3.2 mmol/L (3.5-5.1)
[2018-06-06] MEDS: FUROSEMIDE INJ 10 MG/ML 4 ML VIAL IV SCH ×2 (09:43→20:36)
[2018-06-06] MEDS: ASPIRIN 81 MG ENTERIC COATED PO SCH (09:43)
[2018-06-06] MEDS: CLOPIDOGREL BISULFATE 75 MG TAB PO SCH (09:43)
--- NOTE | 2018-06-06 11:06 | NUR ---
Nutrition Screen Note RD Recommendation for Physician: Continue Diet as ordered Plan of Care: RD following, monitoring for adequacy and tolerance Nutrition reason for involvement: Nutrition Risk Trigger - MST Primary Diagnose(s):CHF, DE, renal insufficiency Ht:64 in Wt:161lbs BMI:27.6 kg/m2 IBW:120lbs RD Assessment:(06/06/2018) Initial encounter with patient. Pt with C/O nausea and diarrhea. Eating well with no weight changes. Denies any difficulty chewing or swallowing Current Diet: 1800 ADA Malnutrition Evaluation (06/06/2018) The patient does not meet criteria for a specified degree of malnutrition at this time. Will re-evaluate at follow-up as appropriate. Diet Education Needs Assessment: Diet education not indicated. Diet Adequacy: Meeting calorie needs, Meeting protein needs, Meeting fluid needs Tolerance: Tolerating PO Nutrition Care Level:Mohsen Ross RD, LD, CNSC
--- NOTE | 2018-06-06 13:30 | NUR ---
SOCIAL WORK INITIAL ASSESSMENT Tennis Desk Team Member to bedside to discuss plan of care with patient/family. CM/SW role and care transitions discussed. Anticipated discharge plan discussed along with duration of care. CM/SW discussed patients right to make decisions in care. CM/SW work hours given. Patient lives: IN HOUSE WITH PATIENT Admit/Transfer: VIA ED POA/Emergency contact: ASHA LITTLE [phone] Current/Previous Home Health: NONE PCP/Follow-up Care: Ondina PRIETO Current/Previous DME:DOMIGNO Other Services: NONE Employment Status: RETIRED Areas of Concerns: NONE Referral Needs: NONE Education Needs: NONE IMM/NORIEGA given and signed (if applicable): UPON ADMISSION Goal for discharge: RETURN HOME CM/SW left business card at the bedside with contact information. Name and number was also written on the patients whiteboard. Patient verbalized understanding of discussion. CM will follow-up with ongoing discharge and transition of care needs.
[2018-06-06] MEDS ORDERED: ONDANSETRON HCL INJ 2MG/ML 2ML 2 MG/ML VIAL IV PRN (14:15)
[2018-06-06] MEDS ORDERED: POTASSIUM CHLORIDE 10MEQ EA PO NR (14:15)
[2018-06-06] MEDS ORDERED: ACETAMINOPHEN 325 MG TAB PO PRN (14:15)
[2018-06-06] MEDS ORDERED: DEXTROSE 50% SYRINGE 50 ML IV PRN (14:30)
[2018-06-06] MEDS ORDERED: METHYLPREDNISOLONE SOD SUCC 40 MG/ML VIAL 1ML IV NR (14:30)
[2018-06-06] MEDS: LEVOFLOXACIN 750MG/D5W 150ML 150 ML IV SCH (14:43)
[2018-06-06] MEDS ORDERED: MORPHINE SULFATE INJ 4 MG/ML INJ 1ML IV PRN (14:45)
[2018-06-06] MEDS: INSULIN LISPRO 100 UNIT/1 ML 3ML VIAL SQ SCH ×2 (16:30→20:54)
[2018-06-06] MEDS: METOPROLOL TARTRATE 25 MG TAB PO SCH (16:39)
[2018-06-06] MEDS: [UNRECOGNIZED DRUG - OTHER] IV SCH (19:01)
[2018-06-06] MEDS: HEPARIN IV SCH (19:01)
[2018-06-06] MEDS: ATORVASTATIN 20 MG TAB PO SCH (20:36)
[2018-06-06] MEDS ORDERED: SODIUM CHLORIDE 0.9% 250ML 250 ML ONE (21:03)
[2018-06-06] MEDS: METRONIDAZOLE 500MG/NS 100ML 100 ML IV SCH (21:41)
--- NOTE | 2018-06-06 22:22 | Consultation ---
DATE OF CONSULTATION: 06/06/2018 REASON FOR CONSULT: CHF and elevated troponin. HISTORY OF PRESENT ILLNESS: Ms. Michael is a 62-year-old lady with past medical history as listed below, presented with complaints of shortness of breath. The patient reportedly has been short-winded for the last 3-4 days. She has also been having some cough with expectoration, scant amount of phlegm. She denies any chest pain or palpitations. This morning, she states that she has some abdominal pain after eating something. She was noted to have borderline elevated troponins. REVIEW OF SYMPTOMS: CONSTITUTIONAL: Has some fatigue and weakness. HEENT: No headache, blurring vision, seizure, syncope. The patient has some dizzy spells. CARDIOVASCULAR: No chest pain. Has dyspnea. No orthopnea or PND. RESPIRATORY: Has cough. No fever. Scant amount of expectoration. GI: Has abdominal pain. She is nauseous. No vomiting or diarrhea. : No dysuria, frequency, incontinence. ALLERGIES: FLUORESCEIN DYE. MEDICATIONS: See list. PAST MEDICAL HISTORY: 1. History of hypertension. 2. History of diabetes mellitus. 3. History of hyperlipidemia. 4. History of diverticulosis. SOCIAL HISTORY: Does not smoke or drink. FAMILY HISTORY: Family history of hypertension and diabetes. PHYSICAL EXAMINATION: GENERAL: Slightly obese lady, alert, oriented, not in any obvious distress. VITAL SIGNS: Heart rate 78, blood pressure 167/81, respiratory rate is 20, temperature is 99.8. HEENT: Atraumatic. NECK: No JVD, bruit, thyromegaly, or lymphadenopathy. CARDIOVASCULAR: First and second heart sounds. No murmurs, rubs, or gallops appreciated. CHEST: Decreased air entry at the bases. No adventitious sounds appreciated. ABDOMEN: Soft, nontender. EXTREMITIES: No edema. LABORATORY DATA: Sodium is 140, potassium is 3.2, chloride is 105, BUN is 25, creatinine 1.1. Glucose is 81, AST is 26, ALT is 14, alkaline phosphatase is 83, troponin 0.559, 0.611. LDL is 100, HDL is 42, cholesterol is 163, and triglycerides are 104. BNP is 617. Chest x-ray shows mild cardiomegaly with small effusions and adjacent atelectasis. Abdominal CT, colonic diverticulosis with subtle inflammatory changes around the sigmoid, may represent mild diverticulitis, moderate bilateral pleural effusions. IMPRESSION: 1. Congestive heart failure. 2. Elevated troponin/ubn-YZ-vylxtlkit myocardial infarction. 3. Hypertension. 4. Diabetes mellitus. 5. Hyperlipidemia. 6. Diverticulosis. PLAN: 1. Troponins borderline elevated. Continue to follow. 2. Get echocardiogram to assess LV function, valvular function. 3. IV diuresis. 4. Aspirin, statin, beta blockers and MICHEAL inhibitors. 5. Further cardiac workup depending on clinical course. 6. Discussed my impression, plan of management with the patient, and she understands. As always, I appreciate and thank you very much for your referrals. MD ESA Webb/IRISL /[id number]
[2018-06-07] VITALS (9 sets, daily range): BP systolic 169–255; BP diastolic 76–115
[2018-06-07] MEDS: NITROGLYCERIN 2% OINT 1 GM PKT TOP SCH ×4 (00:45→17:43)
[2018-06-07 05:36] LABS: BASOPHILS % 0.5 % (0.0-1.0); HEMATOCRIT 33.1 % (34.2-44.1); HEMOGLOBIN 10.6 g/dL (12.0-16.0); LYMPHOCYTES # (AUTO) 1.1 (1.0-3.2); MEAN CORPUSCULAR HEMOGLOBIN 29.3 pg (28-32); MEAN CORPUSCULAR VOLUME 91.4 fL (81-99); MONOCYTES # (AUTO) 0.5 (0.2-0.8); MONOCYTES % 7.8 % (4.4-11.3); NEUTROPHILS # (AUTO) 4.9 (2.1-6.9); NEUTROPHILS % 74.4 % (38.7-80.0); PLATELET COUNT 167 x10e3/uL (140-360); RED BLOOD COUNT 3.62 x10e6/uL (3.6-5.1)
[2018-06-07 06:04] LABS: ALBUMIN 2.1 g/dL (3.5-5.0); ALBUMIN/GLOBULIN RATIO 0.6 (0.8-2.0); CALCIUM 8.2 mg/dL (8.4-10.2); CREATININE, SERUM 1.04 mg/dL (0.57-1.11); MAGNESIUM 1.4 MG/DL (1.3-2.1)
[2018-06-07] MEDS: FAMOTIDINE 20 MG/2 ML VIAL IV SCH ×2 (06:10→17:41)
[2018-06-07] MEDS: METRONIDAZOLE 500MG/NS 100ML 100 ML IV SCH ×3 (06:10→22:47)
--- NOTE | 2018-06-07 07:00 | NUR ---
RECEIVED BEDSIDE SHIFT REPORT FROM NIGHT RN. PT DENIES NEEDS AT THIS TIME.
--- NOTE | 2018-06-07 07:10 | Diagnostic Imaging Report ---
EXAMINATION: PA and lateral views of the chest. COMPARISON: Chest radiograph 06/05/2018. CLINICAL HISTORY: SOB. DISCUSSION: Lines/tubes: None. Lungs: Central vascular congestion with increasing interstitial opacity. Increasing patchy lower lung zone opacities. Pleura: Bilateral small pleural effusions. No evidence of pneumothorax. Heart and mediastinum: Prominent heart size. Bones and soft tissues: No acute bony abnormalities. Degenerative changes in the thoracic spine IMPRESSION: Mild cardiomegaly with pulmonary interstitial edema and small bilateral pleural effusions. Patchy opacities at the lung bases, likely atelectasis, although pneumonia is possible clinical context. Signed by: Dr. Kelley Rivera MD on 06/07/2018 7:07 AM
[2018-06-07] MEDS: INSULIN LISPRO 100 UNIT/1 ML 3ML VIAL SQ SCH ×4 (07:30→20:00)
[2018-06-07] MEDS: FUROSEMIDE INJ 10 MG/ML 4 ML VIAL IV SCH ×2 (08:51→19:53)
[2018-06-07] MEDS: CLOPIDOGREL BISULFATE 75 MG TAB PO SCH (08:52)
[2018-06-07] MEDS: ASPIRIN 325 MG TAB PO SCH (08:52)
[2018-06-07] MEDS: ASPIRIN 81 MG ENTERIC COATED PO SCH (08:52)
[2018-06-07] MEDS: METOPROLOL TARTRATE 25 MG TAB PO SCH ×2 (08:57→17:41)
[2018-06-07] MEDS ORDERED: LISINOPRIL 2.5 MG TAB PO SCH (09:00)
--- NOTE | 2018-06-07 11:12 | Diagnostic Imaging Report ---
EXAM: Renal Ultrasound INDICATION: MICROSCOPIC HEMATURIA /ANNE COMPARISON: CT abdomen/pelvis without contrast 06/05/2018. TECHNIQUE: Transverse and longitudinal images of the kidneys and bladder were obtained. FINDINGS: Right Kidney: Length: 9.6 x 5.0 x 4.9 cm Appearance: Normal echogenicity. Collecting system: No hydronephrosis Stones: None Cyst/Mass: None Left Kidney: Length: 10.7 x 5.1 x 4.6 cm Appearance: Normal echogenicity. Collecting system: No hydronephrosis Stones: None Cyst/Mass: None Bladder: Unremarkable. Bilateral ureteral jets are present. Other: Incidental small bilateral pleural effusions. IMPRESSION: Unremarkable renal ultrasound. Incidental small bilateral pleural effusions. Signed by: Dr. Kelley Rivera MD on 06/07/2018 11:08 AM
[2018-06-07] MEDS: HYDRALAZINE HCL 20 MG/ML VIAL IV PRN ×2 (11:47→19:53)
--- NOTE | 2018-06-07 12:54 | History and Physical ---
PRESENTING COMPLAINT: Shortness of breath with cough and chest pain for 3 days, got worsened yesterday. HISTORY OF PRESENT ILLNESS: A 62-year-old female, who was admitted from the ER. The patient was sent to ER from the office of her PCP, Dr. Norberto Servin for unremitting shortness of breath with chest pain and cough for 3 days. The patient tells that she 3 days ago, gradually started cough and shortness of breath along with chest wall pain. Pain was mostly localized over substernal area. The patient did not have any similar episodes in the past. She was followed by her light rail signal technician, Dr. Harris in his office for CHF exacerbation statement. The patient told that she saw Dr. Harris about 6 months ago in his office. Her cardiac evaluation was normal at that time. The patient denies any fever. She told that she had this shortness of breath with production of the frothy sputum. The patient denied any hemoptysis. She is a nonsmoker. She was not on any inhaler at home as per patient's statement. She also denied any history of CAD or acute MA in the past. REVIEW OF SYSTEMS: CONSTITUTIONAL: No fevers, chills, or rigors. ENT: No nasal congestion. No sore throat. No earache. CARDIOVASCULAR: Chest wall pain as per HPI. No palpitation. PULMONARY: Cough with white sputum and shortness of breath as per HPI. No hemoptysis. GASTROINTESTINAL: Right-sided abdominal pain, started yesterday, localized. No nausea or vomiting. No diarrhea. No episode of bloody stool or black stool. GENITOURINARY: No dysuria. No hematuria. MUSCULOSKELETAL: No joint pain. No joint swelling. No skin rash. No swelling. NEUROLOGIC: No loss of consciousness or seizures, or headache. PAST MEDICAL HISTORY: Diabetes mellitus type 2, hypertension, hyperlipidemia, diverticulosis, hypertensive heart disease. No history of CAD. Syncopal episode in November 2017 as per electronic medical record and left malleolar fracture, status post fall and syncope in November 2017. PAST SURGICAL HISTORY: Cholecystectomy and kidney stone removal, EGD in the past, surgery in the past. ALLERGIES: NO KNOWN MEDICATION ALLERGY. HOME MEDICATION: As per med reconciliation sheet. SOCIAL HISTORY: The patient lives at home with her family. Her is at bedside. HABITS: No smoking, drinking or substance abuse history. FAMILY HISTORY: Positive for diabetes mellitus and hypertension. PHYSICAL EXAMINATION: VITAL SIGNS: At presentation, BP 140/82, pulse 86, temp 97.4, T-max 99.8, respirations 24, and SpO2 94 at room air. GENERAL: Alert, in moderate distress due to shortness of breath and cough. HEENT: No pallor. No icterus. Pupils equally reacting. Oral mucosa moist. NECK: No JVD. No carotid bruit. No lymphadenopathy. No thyromegaly. HEART: S1, S2. Regular. No murmur. LUNGS: Air entry equal on both sides. Fine crackles present over both chest. No rhonchi. ABDOMEN: Soft, nontender. No palpable mass. Bowel sounds active in all quadrants. EXTREMITIES: No edema, cyanosis or clubbing. NEUROLOGICAL: Muscle strength symmetric on both sides. Speech normal. LABORATORY DATA: CBC; WBC 6.8, hemoglobin 12, hematocrit 37, platelets 177, MCV 92, RDW 14, neutrophil 78, lymphocytes 14. PT 49, INR 1.03, PTT 28.8, D-dimer 2.92. Chemistry panel; sodium 140, potassium 3.6, chloride 103, CO2 28, anion gap 8, BUN 23, creatinine 1.38, glucose 112, calcium 8.8. Total bilirubin 0.5, AST is 27, ALT 16, alkaline phosphate 110, CK 251, CK-MB 3.6, troponin I 0.714 and 0.611. BNP 617, total protein 6.7, albumin 2.4, globulin 4.3, triglycerides 104, total cholesterol 163, LDL 100, HDL 42, amylase 24, lipase less than 4, TSH 1.98. Urinalysis; protein 2+, glucose 1+, ketone negative, nitrite negative, leukocyte esterase negative, wbc none, rbc 11 to 20, bacteria moderate. Influenza screening negative. MICROBIOLOGICAL DATA: Blood culture in progress. RADIOLOGICAL DATA: X-ray chest, two-views, mild cardiomegaly with small effusion and adjacent atelectasis. CT abdomen and pelvis without contrast, colonic diverticulosis, subtle inflammatory changes around the sigmoid colon, this may represent mild diverticulitis. There is trace fluid in the abdomen and pelvis. Moderate bilateral pleural effusion with associated atelectasis. EKG, normal sinus rhythm with a rate of 79 beats per minute. No significant ST-T changes. Intervals have been normal limit. ASSESSMENT AND PLAN: 1. Shortness of breath with chest pain, likely due to acute non-ST elevation myocardial infarction with congestive heart failure. The patient's ejection fraction was normal in the past as per electronic medical record. Cardiology consult is requested. Dr. Harris would continue patient on aspirin, nitroglycerin p.r.n., Lasix IV for now. Follow Cardiology recommendation. Continue telemetry. 2. Cough with white sputum. Chest x-ray is negative for any consolidation. The patient might have bronchitis versus early pneumonia. We would continue her IV antibiotic. Follow the sputum culture and blood culture report. 3. Abdominal pain. CT abdomen is suspicious for acute diverticula. Continue IV antibiotic. The patient does not have any fever or leukocytosis. We will check lactic acid level. I would request Gastroenterology evaluation. 4. Hypertension. Continue regular medication. 5. Hypokalemia. Replenish potassium. 6. Gastrointestinal prophylaxis. Continue the patient on proton pump inhibitor. 7. Deep vein thrombosis prophylaxis. Keep the patient on heparin drip as started by light rail signal technician since last night. 8. Prognosis, guarded in view of the patient's multiple comorbidities. 9. we would request the Pulmonology consult for persistent cough and shortness of breath. 10. Discharge plan would depend up on the patient's response to treatment. MD PHILIPP Miguel/TIFFANIE /[id number]
[2018-06-07] MEDS: LEVOFLOXACIN 750MG/D5W 150ML 150 ML IV SCH (14:01)
[2018-06-07] MEDS ORDERED: MAGNESIUM SULFATE 2GM/50ML 50 ML IV ONE (15:30)
[2018-06-07] MEDS ORDERED: POTASSIUM CHLORIDE 20 MEQ TAB CR PO NR (15:40)
[2018-06-07] MEDS: [UNRECOGNIZED DRUG - OTHER] IV SCH (15:48)
[2018-06-07] MEDS: HEPARIN IV SCH (15:48)
[2018-06-07] MEDS: AMLODIPINE BESYLATE 5 MG TAB PO SCH (16:12)
[2018-06-07 17:17] LABS: CREATININE, SERUM 1.04 mg/dL (0.57-1.11)
[2018-06-07] MEDS: ATORVASTATIN 20 MG TAB PO SCH (19:53)
[2018-06-07] MEDS: ALBUTEROL/IPRATROPIUM 3 ML NEB NEB PRN (21:00)
[2018-06-08] VITALS (7 sets, daily range): BP systolic 155–193; BP diastolic 67–84
[2018-06-08] MEDS: NITROGLYCERIN 2% OINT 1 GM PKT TOP SCH ×4 (00:12→18:06)
[2018-06-08 05:27] LABS: BASOPHILS % 0.3 % (0.0-1.0); HEMATOCRIT 33.1 % (34.2-44.1); HEMOGLOBIN 10.8 g/dL (12.0-16.0); LYMPHOCYTES # (AUTO) 0.9 (1.0-3.2); LYMPHOCYTES % 13.3 % (18.0-39.1); MEAN CORPUSCULAR HEMOGLOBIN 29.5 pg (28-32); MEAN CORPUSCULAR HGB CONC 32.6 g/dL (31-35); MEAN CORPUSCULAR VOLUME 90.4 fL (81-99); MONOCYTES # (AUTO) 0.5 (0.2-0.8); MONOCYTES % 6.5 % (4.4-11.3); NEUTROPHILS # (AUTO) 5.7 (2.1-6.9); NEUTROPHILS % 79.6 % (38.7-80.0); PLATELET COUNT 159 x10e3/uL (140-360); RED BLOOD COUNT 3.66 x10e6/uL (3.6-5.1); RED CELL DISTRIBUTION WIDTH 14.2 % (11.7-14.4)
[2018-06-08 05:59] LABS: CALCIUM 8.2 mg/dL (8.4-10.2); CREATININE, SERUM 1.07 mg/dL (0.57-1.11); MAGNESIUM 1.8 MG/DL (1.3-2.1)
[2018-06-08] MEDS: HYDRALAZINE HCL 20 MG/ML VIAL IV PRN (06:00)
[2018-06-08] MEDS: METRONIDAZOLE 500MG/NS 100ML 100 ML IV SCH ×3 (06:27→23:26)
[2018-06-08] MEDS: FAMOTIDINE 20 MG/2 ML VIAL IV SCH ×2 (06:27→18:06)
[2018-06-08] MEDS: INSULIN LISPRO 100 UNIT/1 ML 3ML VIAL SQ SCH ×4 (07:30→21:00)
[2018-06-08] MEDS: HEPARIN IV SCH ×2 (08:04→14:36)
[2018-06-08] MEDS: [UNRECOGNIZED DRUG - OTHER] IV SCH ×2 (08:04→14:36)
[2018-06-08] MEDS: FUROSEMIDE INJ 10 MG/ML 4 ML VIAL IV SCH ×2 (09:08→22:20)
[2018-06-08] MEDS: ASPIRIN 325 MG TAB PO SCH (09:08)
[2018-06-08] MEDS: POTASSIUM CHLORIDE 20 MEQ TAB CR PO SCH (09:09)
[2018-06-08] MEDS: AMLODIPINE BESYLATE 5 MG TAB PO SCH (09:10)
[2018-06-08] MEDS: METOPROLOL TARTRATE 25 MG TAB PO SCH ×2 (09:10→16:33)
[2018-06-08] MEDS: CLOPIDOGREL BISULFATE 75 MG TAB PO SCH (09:15)
[2018-06-08] MEDS: LISINOPRIL 10 MG TAB PO SCH (09:16)
[2018-06-08] MEDS: ALBUTEROL/IPRATROPIUM 3 ML NEB NEB PRN (09:32)
[2018-06-08] MEDS ORDERED: HYDRALAZINE HCL 20 MG/ML VIAL IV PRN (13:30)
[2018-06-08] MEDS: HYDRALAZINE HCL 10 MG TAB PO SCH ×2 (14:26→22:30)
[2018-06-08] MEDS: LEVOFLOXACIN 750MG/D5W 150ML 150 ML IV SCH (16:31)
[2018-06-08] MEDS ORDERED: POTASSIUM CHLORIDE 10MEQ EA PO ONE ×2 (19:00→23:39)
--- NOTE | 2018-06-08 19:35 | NUR ---
Patient received lying in bed. AAO x 3. Family member at bedside. Patient had no complaints of pain. No signs of respiratory distress. Heparin drip infusing at 8 cc /hr. Bed locked and in lowest position. Bed rails up x 2. Patient instructed to call for assistance when needed. Call light within reach.
--- NOTE | 2018-06-08 20:50 | NUR ---
PTT results recorded as 60.9. PTT within therapeutic range. No adjustment of heparin dose.
[2018-06-08] MEDS: ATORVASTATIN 20 MG TAB PO SCH (22:20)
[2018-06-08] MEDS ORDERED: SODIUM CHLORIDE 0.9% 250ML 250 ML ONE (22:21)
--- NOTE | 2018-06-08 23:15 | NUR ---
New IV inserted on right FA arm 22G. Patient tolerated well.
[2018-06-09] VITALS (8 sets, daily range): BP systolic 138–183; BP diastolic 67–88
[2018-06-09] MEDS: NITROGLYCERIN 2% OINT 1 GM PKT TOP SCH ×4 (00:30→17:56)
--- NOTE | 2018-06-09 02:45 | NUR ---
PTT result recorded as 52.4. No change in heparin dosage. Heparin infusing at 8 cc/hr.
[2018-06-09 05:24] LABS: BASOPHILS % 0.3 % (0.0-1.0); EOSINOPHILS # (AUTO) 0.1 (0.0-0.4); EOSINOPHILS % 1.9 % (0.0-6.0); HEMATOCRIT 33.7 % (34.2-44.1); HEMOGLOBIN 11.1 g/dL (12.0-16.0); LYMPHOCYTES # (AUTO) 1.3 (1.0-3.2); LYMPHOCYTES % 17.2 % (18.0-39.1); MEAN CORPUSCULAR HEMOGLOBIN 29.4 pg (28-32); MEAN CORPUSCULAR HGB CONC 32.9 g/dL (31-35); MEAN CORPUSCULAR VOLUME 89.4 fL (81-99); MONOCYTES # (AUTO) 0.6 (0.2-0.8); MONOCYTES % 7.7 % (4.4-11.3); NEUTROPHILS # (AUTO) 5.3 (2.1-6.9); NEUTROPHILS % 72.5 % (38.7-80.0); PLATELET COUNT 155 x10e3/uL (140-360); RED BLOOD COUNT 3.77 x10e6/uL (3.6-5.1); RED CELL DISTRIBUTION WIDTH 14.4 % (11.7-14.4)
[2018-06-09 05:44] LABS: ALBUMIN/GLOBULIN RATIO 0.6 (0.8-2.0); ANION GAP 11.4 mmol/L (8-16); CALCIUM 7.6 mg/dL (8.4-10.2); CREATININE, SERUM 1.01 mg/dL (0.57-1.11); POTASSIUM 3.4 mmol/L (3.5-5.1)
[2018-06-09] MEDS: FAMOTIDINE 20 MG/2 ML VIAL IV SCH ×2 (06:30→17:56)
[2018-06-09] MEDS: HYDRALAZINE HCL 10 MG TAB PO SCH ×3 (06:40→22:00)
[2018-06-09] MEDS: METRONIDAZOLE 500MG/NS 100ML 100 ML IV SCH ×3 (06:40→22:00)
--- NOTE | 2018-06-09 07:25 | NUR ---
Walking rounds done. Shift report given to oncoming nurse.
[2018-06-09] MEDS: INSULIN LISPRO 100 UNIT/1 ML 3ML VIAL SQ SCH ×4 (07:30→21:00)
[2018-06-09] MEDS ORDERED: POTASSIUM CHLORIDE 20 MEQ TAB CR PO ONE ×2 (09:00)
[2018-06-09] MEDS: FUROSEMIDE INJ 10 MG/ML 4 ML VIAL IV SCH ×2 (10:06→21:46)
[2018-06-09] MEDS: ASPIRIN 325 MG TAB PO SCH (10:06)
[2018-06-09] MEDS: POTASSIUM CHLORIDE 20 MEQ TAB CR PO SCH (10:07)
[2018-06-09] MEDS: CLOPIDOGREL BISULFATE 75 MG TAB PO SCH (10:08)
[2018-06-09] MEDS: METOPROLOL TARTRATE 25 MG TAB PO SCH ×2 (10:08→17:56)
[2018-06-09] MEDS: AMLODIPINE BESYLATE 5 MG TAB PO SCH (10:08)
[2018-06-09] MEDS: LISINOPRIL 10 MG TAB PO SCH (10:08)
[2018-06-09 11:04] LABS: EOSINOPHILS % (MANUAL) 1 % (0-7); LYMPHOCYTES % (MANUAL) 21 % (19-48); MONOCYTES % (MANUAL) 10 % (3.4-9.0); NEUTROPHILS % (MANUAL) 67 % (40-74); NUCLEATED RED BLOOD CELLS 1; PLATELET ESTIMATE SLIGHTLY DECREASED; PLATELET MORPHOLOGY COMMENT NORMAL; RBC MORPHOLOGY COMMENT NORMAL
[2018-06-09] MEDS: LEVOFLOXACIN 750MG/D5W 150ML 150 ML IV SCH (17:14)
[2018-06-09] MEDS: HEPARIN IV SCH (17:51)
[2018-06-09] MEDS: [UNRECOGNIZED DRUG - OTHER] IV SCH (17:51)
[2018-06-09] MEDS: ATORVASTATIN 20 MG TAB PO SCH (21:46)
[2018-06-10] VITALS (8 sets, daily range): BP systolic 133–175; BP diastolic 63–85
[2018-06-10] MEDS: NITROGLYCERIN 2% OINT 1 GM PKT TOP SCH ×4 (00:30→17:16)
[2018-06-10] MEDS: HYDRALAZINE HCL 10 MG TAB PO SCH ×3 (00:33→14:55)
[2018-06-10 05:13] LABS: BASOPHILS % 0.1 % (0.0-1.0); HEMATOCRIT 33.6 % (34.2-44.1); HEMOGLOBIN 10.9 g/dL (12.0-16.0); LYMPHOCYTES % 25.6 % (18.0-39.1); MEAN CORPUSCULAR HEMOGLOBIN 29.3 pg (28-32); MEAN CORPUSCULAR HGB CONC 32.4 g/dL (31-35); MEAN CORPUSCULAR VOLUME 90.3 fL (81-99); MONOCYTES # (AUTO) 0.5 (0.2-0.8); MONOCYTES % 5.9 % (4.4-11.3); NEUTROPHILS # (AUTO) 5.2 (2.1-6.9); NEUTROPHILS % 68.1 % (38.7-80.0); PLATELET COUNT 167 x10e3/uL (140-360); RED BLOOD COUNT 3.72 x10e6/uL (3.6-5.1); RED CELL DISTRIBUTION WIDTH 14.2 % (11.7-14.4)
[2018-06-10 05:17] LABS: ALBUMIN/GLOBULIN RATIO 0.6 (0.8-2.0); ANION GAP 9.5 mmol/L (8-16); CALCIUM 7.7 mg/dL (8.4-10.2); POTASSIUM 3.5 mmol/L (3.5-5.1)
--- NOTE | 2018-06-10 05:56 | NUR ---
Patient received lying in bed. AAO x 4. No acute distress noted. Heparin drip infusing at 8 cc/hr. Fall precautions in place. Call light within reach.
[2018-06-10] MEDS: METRONIDAZOLE 500MG/NS 100ML 100 ML IV SCH ×3 (06:00→22:00)
--- NOTE | 2018-06-10 06:11 | NUR ---
IV heparin held at midnight per MD's orders. Patient informed about recommended surgical procedure---Cardiac catheterization and possible PCI. Patient instructed about "NPO" status after midnight. Patient verbalized understanding and voluntarily signed "Disclosure and Consent" form.
[2018-06-10] MEDS: FAMOTIDINE 20 MG/2 ML VIAL IV SCH ×2 (06:15→17:16)
--- NOTE | 2018-06-10 07:00 | NUR ---
RECEIVED BEDSIDE SHIFT REPORT FROM NIGHT RN. PT DENIES NEEDS AT THIS TIME.
[2018-06-10] MEDS: INSULIN LISPRO 100 UNIT/1 ML 3ML VIAL SQ SCH ×4 (07:30→21:00)
[2018-06-10] MEDS: POTASSIUM CHLORIDE 20 MEQ TAB CR PO SCH (09:00)
[2018-06-10] MEDS: AMLODIPINE BESYLATE 5 MG TAB PO SCH (09:00)
[2018-06-10] MEDS: ASPIRIN 325 MG TAB PO SCH (09:00)
[2018-06-10] MEDS: LISINOPRIL 10 MG TAB PO SCH (09:00)
[2018-06-10] MEDS: FUROSEMIDE INJ 10 MG/ML 4 ML VIAL IV SCH ×2 (09:00→21:30)
[2018-06-10] MEDS: METOPROLOL TARTRATE 25 MG TAB PO SCH ×2 (09:00→17:15)
[2018-06-10] MEDS: CLOPIDOGREL BISULFATE 75 MG TAB PO SCH (09:00)
[2018-06-10] MEDS: SPIRONOLACTONE 25 MG TAB PO SCH (09:00)
[2018-06-10 09:23] LABS: EOSINOPHILS % (MANUAL) 1 % (0-7); LYMPHOCYTES % (MANUAL) 21 % (19-48); MONOCYTES % (MANUAL) 7 % (3.4-9.0); NEUTROPHILS % (MANUAL) 70 % (40-74)
[2018-06-10 09:24] LABS: HYPOCHROMASIA MODERATE; PLATELET ESTIMATE ADEQUATE; PLATELET MORPHOLOGY COMMENT FEW LARGE; RBC MORPHOLOGY COMMENT ABNORMAL
[2018-06-10] MEDS ORDERED: SODIUM CHLORIDE 0.9% 1000ML 1,000 ML ONE (10:58)
[2018-06-10] MEDS ORDERED: LIDOCAINE HCL 2% LOCAL 20 ML VIAL ONE (10:58)
[2018-06-10] MEDS ORDERED: IOPAMIDOL 370 MG/ML 200 ML INFUS..BTL INJ ONE ×2 (10:58→11:06)
[2018-06-10] MEDS ORDERED: HEPARIN SOD/SOD CHLORIDE 2,000 ML ONE (10:58)
--- NOTE | 2018-06-10 11:00 | NUR ---
PT OFF THE UNIT TO COUNSELLORS.
[2018-06-10] MEDS ORDERED: FENTANYL CITRATE/PF 100MCG/2 ML INJ ONE (11:06)
[2018-06-10] MEDS ORDERED: MIDAZOLAM HCL 2 MG/2 ML VIAL ONE (11:06)
[2018-06-10] MEDS ORDERED: HYDRALAZINE HCL 20 MG/ML VIAL ONE (11:42)
--- NOTE | 2018-06-10 12:15 | NUR ---
PT BACK TO THE FLOOR FROM BED AND BREAKFAST OPERATOR. LEFT HEART CATH THRU RT GROIN. PT LYING FLAT FOR 6 HRS. PT DENIES NEEDS AT THIS TIME.
--- NOTE | 2018-06-10 14:26 | Operative Report ---
DATE OF PROCEDURE: 06/10/2018 SURGEON: Eris Harris MD PROCEDURES: 1. Left heart catheterization. 2. Selective coronary angiogram. 3. LV gram. INDICATION: Non-ST elevation MA. ANESTHESIA: A 2% lidocaine for local anesthesia. Fentanyl and Versed for conscious sedation. DESCRIPTION OF PROCEDURE: After informed consent, the patient was brought to the cardiac catheterization laboratory and placed on table. Both groins were painted and draped in a sterile fashion. Lidocaine was injected in right groin for local anesthesia. Right femoral artery was accessed by Seldinger technique and a 5-Cameroonian sheath was placed in right femoral artery. Left main artery was cannulated using a JL-4 5-Cameroonian catheter. Coronary angiogram was performed and images were obtained in multiple views. Right coronary artery was cannulated using a 3DRC five-Cameroonian catheter. Coronary angiogram was performed and images were obtained in multiple views. LV gram was performed using a pigtail catheter. The patient tolerated the procedure without any complications. REPORT: 1. Left main; normal caliber and no significant stenosis. 2. Left anterior descending; normal caliber with luminal irregularities. 3. Left circumflex; normal caliber. There is a 20% to 30% long mid lesion. 4. Right coronary artery; normal caliber and has 50% mid lesion. 5. LV gram; normal LV function. Overall ejection fraction is 55%. HEMODYNAMICS: Aortic pressure is 170/76, LV pressure 180/6, and LVEDP is 19. PLAN: Medical management. Eris Harris MD SC/MODL /[id number]
[2018-06-10] MEDS: LEVOFLOXACIN 750MG/D5W 150ML 150 ML IV SCH (14:54)
[2018-06-10 16:06] LABS: ANION GAP 8.5 mmol/L (8-16); BLOOD UREA NITROGEN 20 mg/dL (7-26); BUN/CREATININE RATIO 22 (6-25); CALCIUM 7.5 mg/dL (8.4-10.2); CARBON DIOXIDE 30 mmol/L (22-29); CHLORIDE 101 mmol/L (98-107); EST GLOMERULAR FILTRATION RATE > 60 ML/MIN (60-); GLUCOSE 99 mg/dL (74-118); POTASSIUM 3.5 mmol/L (3.5-5.1); SODIUM 136 mmol/L (136-145)
[2018-06-10] MEDS: [UNRECOGNIZED DRUG - OTHER] IV SCH (17:15)
[2018-06-10] MEDS: HEPARIN IV SCH (17:15)
--- NOTE | 2018-06-10 19:32 | NUR ---
Patient received lying in bed . at bedside. AAO x 3. No acute distress noted. Dressing to Right groin s/p cardiac cath clean, dry and intact. No drainage/bleeding noted. Call light within reach.
[2018-06-10] MEDS ORDERED: ATORVASTATIN 40 MG TAB PO SCH (21:00)
[2018-06-11 01:05] VITALS: BP 154/72
[2018-06-11 02:31] VITALS: BP 154/72
[2018-06-11] MEDS: METRONIDAZOLE 500MG/NS 100ML 100 ML IV SCH (05:39)
[2018-06-11] MEDS: HYDRALAZINE HCL 10 MG TAB PO SCH (05:39)
[2018-06-11] MEDS: NITROGLYCERIN 2% OINT 1 GM PKT TOP SCH ×2 (05:40)
[2018-06-11] MEDS: FAMOTIDINE 20 MG/2 ML VIAL IV SCH (05:41)
--- NOTE | 2018-06-11 06:35 | NUR ---
Patient refused Nitrobid 2% ointment scheduled for 0000 and 0600 stating she doesn't need it anymore.
[2018-06-11 06:38] VITALS: BP 151/70
--- NOTE | 2018-06-11 07:00 | NUR ---
SHIFT REPORT FROM NIGHT NURSE AT BEDSIDE. PT DENIES NEEDS AT THIS TIME.
--- NOTE | 2018-06-11 07:06 | NUR ---
Shift report given to oncoming nurse.
[2018-06-11] MEDS: INSULIN LISPRO 100 UNIT/1 ML 3ML VIAL SQ SCH (07:30)
[2018-06-11 08:00] VITALS: BP 184/84
[2018-06-11] MEDS: FUROSEMIDE INJ 10 MG/ML 4 ML VIAL IV SCH (08:06)
[2018-06-11] MEDS: ASPIRIN 325 MG TAB PO SCH (08:06)
[2018-06-11] MEDS: SPIRONOLACTONE 25 MG TAB PO SCH (08:06)
[2018-06-11] MEDS: POTASSIUM CHLORIDE 20 MEQ TAB CR PO SCH (08:07)
[2018-06-11] MEDS: LISINOPRIL 10 MG TAB PO SCH (08:07)
[2018-06-11] MEDS: METOPROLOL TARTRATE 25 MG TAB PO SCH (08:07)
[2018-06-11] MEDS: CLOPIDOGREL BISULFATE 75 MG TAB PO SCH (08:07)
[2018-06-11] MEDS: AMLODIPINE BESYLATE 5 MG TAB PO SCH (08:07)
[2018-06-11 09:00] VITALS: BP 184/84
[2018-06-11] MEDS ORDERED: FLAGYL250 MG (10:36)
[2018-06-11] MEDS ORDERED: LEVAQUIN500 MG PO (10:36)
[2018-06-11] MEDS ORDERED: PLAVIX75 MG PO (10:37)
--- NOTE | 2018-06-11 10:38 | NUR ---
PT CLEARED BY DR. JOAQUIN AND DR. BAEZ FOR DISCHARGE HOME. FOLLOW UP .
--- NOTE | 2018-06-11 10:45 | NUR ---
PT'S IV DC'D IN BOTH LEFT AND RIGHT SITES. TIP INTACT, BLEEDING STOPPED AND DRESSING PLACED. PT TOLERATED.
--- NOTE | 2018-06-12 03:18 | Discharge Summary ---
HISTORY: She is a 62-year-old female patient, presented with complaints of chest pain, abdominal pain, and shortness of breath. ADMITTING IMPRESSION AND DIAGNOSES: Acute non-ST myocardial infarction, shortness of breath, decompensated congestive heart failure, diastolic congestive heart failure, acute diverticulitis, diabetes mellitus, hypertension, and hyperlipidemia. HOSPITAL COURSE SUMMARY: The patient was admitted with above diagnoses. The patient had Cardiology and GI evaluation done. The patient was started on IV antibiotics, Levaquin, and Flagyl. The patient had CT scan of the abdomen done. The patient had Cardiology consultation done. The patient was started on beta-yoli, Lovenox, Plavix, and Nitro. The patient had renal ultrasound done, which was unremarkable. The patient had CT scan of the abdomen done, which showed acute diverticulitis in the colon, mild diverticulitis, and moderate bilateral pleural effusion. Chest x-ray done, which showed mild cardiomegaly with small effusion. The patient had a cardiac catheterization done. The patient had an echocardiogram done. The patient had low potassium, so potassium supplementation was done. Cardiac cath report; the patient had left main normal, LAD normal, left circumflex 20% to 30% long mid lesion, right coronary 50% mid lesion, and ejection fraction 55%. Now upon stabilization, the patient will be discharged home on antibiotic, Levaquin, and Flagyl. The patient was advised to continue Plavix and the patient will be given analgesics and Tylenol With Codeine. DISCHARGE DIAGNOSES: 1. Acute non-ST myocardial infarction. 2. Coronary artery disease. 3. Diverticulitis. 4. Diabetes mellitus. 5. Hypertension. 6. Obesity. MD SHIRLEY Donovan/TIFFANIE /[id number]
== END 2018-06-11 10:57 | disposition home or self-care (01) | DRG 280 ==
LOC: ER 13:14 → ERHOLD 18:27 → MED/SURG2 21:12
PROVIDERS: ADMIT Internal Medicine; ATTEND Internal Medicine
PROC: 4A023N7 Measurement of Cardiac Sampling and Pressure, Left Heart, Percutaneous Approach (ICD-10-PCS; principal; 2018-06-10)
PROC: B2111ZZ Fluoroscopy of Multiple Coronary Arteries using Low Osmolar Contrast (ICD-10-PCS; 2018-06-10)
PROC: B2151ZZ Fluoroscopy of Left Heart using Low Osmolar Contrast (ICD-10-PCS; 2018-06-10)
DX: I21.4 Non-ST elevation (NSTEMI) myocardial infarction (principal); I50.31 Acute diastolic (congestive) heart failure; K57.32 Diverticulitis of large intestine without perforation or abscess without bleeding; E87.6 Hypokalemia; I11.0 Hypertensive heart disease with heart failure; E11.9 Type 2 diabetes mellitus without complications; E78.5 Hyperlipidemia, unspecified; D64.9 Anemia, unspecified; E66.9 Obesity, unspecified; Z68.27 Body mass index [BMI] 27.0-27.9, adult; R31.29 Other microscopic hematuria; M19.90 Unspecified osteoarthritis, unspecified site; Z79.02 Long term (current) use of antithrombotics/antiplatelets; Z79.4 Long term (current) use of insulin; Z91.041 Radiographic dye allergy status
CPT/HCPCS: 36415; 71046; 74176; 76770; 80048; 80053; 80061; 81001; 82150; 82550; 82553; 82948; 83036; 83605; 83690; 83735; 83880; 84443; 84484; 85025; 85379; 85610; 85730; 87040; 87086; 87400; 93005; 93306; 93458; 94640; 96361; 99284; J0360; J1644; J1940; J2001; J2250; J2405; J3475; J7030; J7050; Q9967

== ENCOUNTER → 2020-04-28 | Outpatient (CLI) | payer MEDICARE ==
[~2020-04-28] MED LIST changes: +FLAGYL250 MG; +LEVAQUIN500 MG PO; +PLAVIX75 MG PO
== END ==
LOC: US 09:38
PROVIDERS: ATTEND Internal Medicine
DX: Z12.31 Encounter for screening mammogram for malignant neoplasm of breast (principal); M85.89 Other specified disorders of bone density and structure, multiple sites; M94.9 Disorder of cartilage, unspecified; R10.11 Right upper quadrant pain; G44.329 Chronic post-traumatic headache, not intractable
CPT/HCPCS: 76700; 77067; 77080

== ENCOUNTER 2020-06-16 20:04 | Inpatient (IN) | payer MEDICARE ==
[~2020-06-16] VITALS: Ht 162.6 cm; Wt 74.4 kg
[2020-06-16] MEDS ORDERED: CEFTRIAXONE SOD 1 GM/50 ML BAG IV ONE (20:30)
[2020-06-16] MEDS ORDERED: ACETAMINOPHEN 325 MG TAB PO ONE (20:30)
[2020-06-16] MEDS ORDERED: SODIUM CHLORIDE 0.9% 1000ML 1,000 ML IV ONE ×2 (20:30→21:30)
[2020-06-16 20:59] LABS: BASOPHILS # (AUTO) 0.1 (0.0-0.1); BASOPHILS % 0.4 % (0.0-1.0); HEMATOCRIT 31.5 % (34.2-44.1); HEMOGLOBIN 9.9 g/dL (12.0-16.0); LYMPHOCYTES # (AUTO) 0.5 (1.0-3.2); LYMPHOCYTES % 2.2 % (18.0-39.1); MEAN CORPUSCULAR HEMOGLOBIN 29.7 pg (28-32); MEAN CORPUSCULAR HGB CONC 31.4 g/dL (31-35); MEAN CORPUSCULAR VOLUME 94.6 fL (81-99); MONOCYTES # (AUTO) 0.5 (0.2-0.8); MONOCYTES % 2.1 % (4.4-11.3); NEUTROPHILS % 94.2 % (38.7-80.0); PLATELET COUNT 267 x10e3/uL (140-360); RED BLOOD COUNT 3.33 x10e6/uL (3.6-5.1); RED CELL DISTRIBUTION WIDTH 12.7 % (11.7-14.4)
[2020-06-16] MEDS ORDERED: CEFTRIAXONE SOD 1 GM in DEXTROSE 5% 50ML 50 ML IV ONE (21:00)
[2020-06-16 21:04] LABS: INR 1.08; PARTIAL THROMBOPLASTIN TIME 25.1 seconds (23.8-35.5); PROTHROMBIN TIME 14.7 seconds (11.9-14.5)
[2020-06-16] MEDS ORDERED: SODIUM CHLORIDE 0.9% 50ML 50 ML ONE (21:11)
[2020-06-16] MEDS ORDERED: CEFTRIAXONE SOD 1 GM VIAL ONE (21:11)
[2020-06-16 21:13] LABS: ALBUMIN 2.8 g/dL (3.5-5.0); ALBUMIN/GLOBULIN RATIO 0.6 (0.8-2.0); CALCIUM 8.2 mg/dL (8.4-10.2); CREATININE, SERUM 2.26 mg/dL (0.57-1.11)
[2020-06-16] MEDS ORDERED: SODIUM BICARBONATE 8.4% INJ 50 ML SYR IV STA (21:19)
[2020-06-16] MEDS ORDERED: DEXTROSE 50% SYRINGE 50 ML IV STA (21:19)
[2020-06-16] MEDS ORDERED: CALCIUM CHLORIDE 10% 1.36 MEQ/ML 10ML SYR IV STA (21:19)
[2020-06-16] MEDS ORDERED: INSULIN REGULAR, HUMAN 100 UNIT/1 ML 3ML VIAL IV ONE (21:30)
[2020-06-16] MEDS ORDERED: SOD POLYSTYRENE SULFONATE SUSP 15 GM/60 ML BTL PO ONE (21:30)
[2020-06-16] MEDS ORDERED: SODIUM CHLORIDE 0.9% 1000ML 1,000 ML ONE (21:36)
[2020-06-16 22:32] LABS: CLARITY,URINE CLOUDY (CLEAR); COLOR,URINE YELLOW (YELLOW); KETONES,URINE NEGATIVE (NEGATIVE); LEUKOCYTE ESTERASE ,URINE SMALL (NEGATIVE); NITRITE,URINE NEGATIVE (NEGATIVE); PROTEIN,URINE DIPSTICK 2+ (NEGATIVE); URINE UROBILINOGEN 1 mg/dL (0.2 - 1)
[2020-06-16 22:39] LABS: BACTERIA,URINE MANY /HPF; EPITHELIAL CELLS,URINE FEW /LPF; WBC,URINE (MAN) 21-50 /HPF (0-5)
[2020-06-16] MEDS: SODIUM CHLORIDE 0.9% 1000ML 1,000 ML IV SCH (22:57)
[2020-06-16 23:30] LABS: ANION GAP 15.6 mmol/L (8-16); CALCIUM 8.5 mg/dL (8.4-10.2); POTASSIUM 5.6 mmol/L (3.5-5.1)
[2020-06-16] MEDS ORDERED: SODIUM CHLORIDE 0.9% 250ML 250 ML IV ONE (23:30)
[2020-06-16] MEDS ORDERED: DEXTROSE 50% SYRINGE 50 ML IV PRN (23:45)
[2020-06-16] MEDS ORDERED: ONDANSETRON HCL INJ 2MG/ML 2ML 2 MG/ML VIAL IV PRN (23:45)
[2020-06-17] VITALS (8 sets, daily range): BP systolic 121–166; BP diastolic 53–87
[2020-06-17] MEDS ORDERED: MEROPENEM 500MG 500 MG in SODIUM CHLORIDE 0.9% 50ML 50 ML IV SCH ×2
[2020-06-17] MEDS ORDERED: LIDOCAINE 4% PATCH TP PRN (01:00)
[2020-06-17] MEDS ORDERED: GUAIFENESIN/CODEINE 10 ML CUP PO PRN (01:00)
[2020-06-17] MEDS ORDERED: SIMETHICONE 80 MG CHEW PO PRN (01:00)
[2020-06-17] MEDS ORDERED: DIPHENHYDRAMINE HCL 25 MG CAP PO PRN (01:00)
[2020-06-17] MEDS ORDERED: HYDRALAZINE HCL 20 MG/ML VIAL IV PRN (01:00)
[2020-06-17] MEDS ORDERED: ONDANSETRON HCL INJ 2MG/ML 2ML 2 MG/ML VIAL IV PRN (01:00)
[2020-06-17] MEDS ORDERED: POLYETHYLENE GLYCOL 3350 17 GM PACK PO PRN (01:00)
[2020-06-17] MEDS ORDERED: BENZONATATE 100 MG CAP PO PRN (01:00)
[2020-06-17] MEDS ORDERED: MELATONIN 5 MG TABLET PO PRN (01:00)
[2020-06-17] MEDS ORDERED: DOCUSATE SODIUM 100 MG CAP PO PRN (01:00)
[2020-06-17] MEDS ORDERED: DEXTROSE 50% SYRINGE 50 ML IV PRN (01:00)
[2020-06-17] MEDS ORDERED: FUROSEMIDE INJ 10 MG/ML 2 ML VIAL IV ONE ×2 (01:15→02:15)
[2020-06-17] MEDS: SODIUM CHLORIDE 0.9% 1000ML 1,000 ML IV SCH ×2 (06:26→16:06)
[2020-06-17] MEDS: PANTOPRAZOLE SOD 40 MG TABEC PO SCH (07:30)
[2020-06-17] MEDS: INSULIN REGULAR, HUMAN 100 UNIT/1 ML 3ML VIAL SQ SCH ×4 (07:30→21:00)
[2020-06-17 08:22] LABS: BASOPHILS # (AUTO) 0.1 (0.0-0.1); BASOPHILS % 0.6 % (0.0-1.0); HEMOGLOBIN 8.2 g/dL (12.0-16.0); LYMPHOCYTES # (AUTO) 2.2 (1.0-3.2); LYMPHOCYTES % 10.1 % (18.0-39.1); MEAN CORPUSCULAR HEMOGLOBIN 30.4 pg (28-32); MEAN CORPUSCULAR HGB CONC 31.5 g/dL (31-35); MEAN CORPUSCULAR VOLUME 96.3 fL (81-99); MONOCYTES # (AUTO) 0.9 (0.2-0.8); MONOCYTES % 4.2 % (4.4-11.3); NEUTROPHILS # (AUTO) 18.3 (2.1-6.9); NEUTROPHILS % 84.7 % (38.7-80.0); PLATELET COUNT 210 x10e3/uL (140-360); RED CELL DISTRIBUTION WIDTH 12.7 % (11.7-14.4)
[2020-06-17 08:41] LABS: ALBUMIN 2.2 g/dL (3.5-5.0); ALBUMIN/GLOBULIN RATIO 0.6 (0.8-2.0); ANION GAP 12.8 mmol/L (8-16); CALCIUM 7.7 mg/dL (8.4-10.2); CREATININE, SERUM 1.88 mg/dL (0.57-1.11); POTASSIUM 4.8 mmol/L (3.5-5.1)
[2020-06-17] MEDS: SODIUM BICARBONATE 650 MG TAB PO SCH ×2 (09:00→17:00)
[2020-06-17] MEDS ORDERED: FOLIC ACID0.4 MG PO (10:27)
[2020-06-17] MEDS ORDERED: LISINOPRIL2.5 MG PO (10:27)
[2020-06-17] MEDS: MEROPENEM 500MG/ NS 50ML 50 ML IV SCH ×2 (11:00→23:00)
[2020-06-17] MEDS: ACETAMINOPHEN 325 MG TAB PO PRN (15:46)
[2020-06-18] VITALS (8 sets, daily range): BP systolic 123–173; BP diastolic 67–88
[2020-06-18] MEDS: SODIUM CHLORIDE 0.9% 1000ML 1,000 ML IV SCH ×2 (01:54→13:43)
[2020-06-18 06:08] LABS: BASOPHILS # (AUTO) 0.1 (0.0-0.1); BASOPHILS % 0.6 % (0.0-1.0); EOSINOPHILS # (AUTO) 0.1 (0.0-0.4); EOSINOPHILS % 0.7 % (0.0-6.0); HEMATOCRIT 28.1 % (34.2-44.1); HEMOGLOBIN 8.4 g/dL (12.0-16.0); LYMPHOCYTES # (AUTO) 3.1 (1.0-3.2); LYMPHOCYTES % 17.5 % (18.0-39.1); MEAN CORPUSCULAR HEMOGLOBIN 29.5 pg (28-32); MEAN CORPUSCULAR HGB CONC 29.9 g/dL (31-35); MEAN CORPUSCULAR VOLUME 98.6 fL (81-99); MONOCYTES # (AUTO) 1.4 (0.2-0.8); MONOCYTES % 7.5 % (4.4-11.3); NEUTROPHILS # (AUTO) 13.1 (2.1-6.9); NEUTROPHILS % 73.1 % (38.7-80.0); PLATELET COUNT 201 x10e3/uL (140-360); RED BLOOD COUNT 2.85 x10e6/uL (3.6-5.1)
[2020-06-18 06:46] LABS: ALBUMIN 2.1 g/dL (3.5-5.0); ANION GAP 12.5 mmol/L (8-16); CALCIUM 7.6 mg/dL (8.4-10.2); CREATININE, SERUM 1.61 mg/dL (0.57-1.11); POTASSIUM 4.5 mmol/L (3.5-5.1)
[2020-06-18 07:15] LABS: MAGNESIUM 1.2 MG/DL (1.3-2.1); PHOSPHORUS 3.6 MG/DL (2.3-4.7)
[2020-06-18 07:20] LABS: THYROID STIMULATING HORMONE 1.728 uIU/mL (0.350-4.940)
[2020-06-18] MEDS: PANTOPRAZOLE SOD 40 MG TABEC PO SCH (07:30)
[2020-06-18] MEDS: INSULIN REGULAR, HUMAN 100 UNIT/1 ML 3ML VIAL SQ SCH ×4 (07:30→21:00)
[2020-06-18] MEDS: SODIUM BICARBONATE 650 MG TAB PO SCH ×2 (09:00→16:39)
[2020-06-18] MEDS: MEROPENEM 500MG/ NS 50ML 50 ML IV SCH ×2 (11:00→23:20)
[2020-06-18 11:01] LABS: ABG PCO2 35 mmHg (35-45); ABG PH 7.33 (7.35-7.45); ABG PO2 53 mmHg (80-105)
[2020-06-18 11:04] LABS: ABG HCO3 19 mmol/L (22-26); ABG TCO2 20
[2020-06-18] MEDS ORDERED: EPINEPHRINE HCL 1:1000 1ML 1 MG/ML AMP ONE (13:57)
[2020-06-18] MEDS: ACETAMINOPHEN 325 MG TAB PO PRN (18:05)
[2020-06-19] VITALS (17 sets, daily range): BP systolic 104–167; BP diastolic 63–111
[2020-06-19] MEDS: SODIUM CHLORIDE 0.9% 1000ML 1,000 ML IV SCH ×2 (06:11→09:43)
[2020-06-19] MEDS: INSULIN REGULAR, HUMAN 100 UNIT/1 ML 3ML VIAL SQ SCH ×4 (08:30→22:08)
[2020-06-19 08:52] LABS: BASOPHILS # (AUTO) 0.1 (0.0-0.1); BASOPHILS % 0.5 % (0.0-1.0); EOSINOPHILS # (AUTO) 0.1 (0.0-0.4); EOSINOPHILS % 0.4 % (0.0-6.0); HEMATOCRIT 29.8 % (34.2-44.1); HEMOGLOBIN 9.1 g/dL (12.0-16.0); LYMPHOCYTES # (AUTO) 2.5 (1.0-3.2); LYMPHOCYTES % 15.5 % (18.0-39.1); MEAN CORPUSCULAR HEMOGLOBIN 29.4 pg (28-32); MEAN CORPUSCULAR HGB CONC 30.5 g/dL (31-35); MEAN CORPUSCULAR VOLUME 96.4 fL (81-99); MONOCYTES # (AUTO) 1.1 (0.2-0.8); MONOCYTES % 6.7 % (4.4-11.3); NEUTROPHILS # (AUTO) 12.1 (2.1-6.9); NEUTROPHILS % 76.1 % (38.7-80.0); PLATELET COUNT 227 x10e3/uL (140-360); RED BLOOD COUNT 3.09 x10e6/uL (3.6-5.1); RED CELL DISTRIBUTION WIDTH 13.2 % (11.7-14.4)
[2020-06-19] MEDS ORDERED: DIPHENHYDRAMINE HCL 25 MG CAP PO SCH (09:00)
[2020-06-19 09:23] LABS: CALCIUM 7.4 mg/dL (8.4-10.2); CREATININE, SERUM 1.5 mg/dL (0.57-1.11)
[2020-06-19] MEDS: PANTOPRAZOLE SOD 40 MG TABEC PO SCH (09:24)
[2020-06-19] MEDS: SODIUM BICARBONATE 650 MG TAB PO SCH ×2 (09:24→16:07)
[2020-06-19] MEDS: IRON SUCROSE 100 MG in SODIUM CHLORIDE 0.9% 100 ML 100 ML IV SCH (09:30)
[2020-06-19 09:37] LABS: CHOL/HDL RATIO 4.3 (3.0-3.6)
[2020-06-19] MEDS: MEROPENEM 500MG/ NS 50ML 50 ML IV SCH ×2 (11:09→23:52)
[2020-06-19] MEDS: ACETAMINOPHEN 325 MG TAB PO SCH (13:37)
[2020-06-19] MEDS ORDERED: ETOMIDATE 2 MG/ML 10 ML INJ IV ONE (13:55)
[2020-06-19] MEDS ORDERED: SUCCINYLCHOLINE CHLORIDE 20 MG/ML 10ML VIAL ONE (13:55)
[2020-06-19] MEDS ORDERED: PROPOFOL IV EMULSION 10MG/ML 100 ML IV PRN (14:22)
[2020-06-19 15:39] LABS: BASOPHILS # (AUTO) 0.1 (0.0-0.1); BASOPHILS % 0.3 % (0.0-1.0); EOSINOPHILS % 0.1 % (0.0-6.0); HEMOGLOBIN 7.9 g/dL (12.0-16.0); LYMPHOCYTES # (AUTO) 0.7 (1.0-3.2); LYMPHOCYTES % 4.5 % (18.0-39.1); MEAN CORPUSCULAR HEMOGLOBIN 29.3 pg (28-32); MEAN CORPUSCULAR HGB CONC 29.3 g/dL (31-35); MONOCYTES # (AUTO) 0.9 (0.2-0.8); MONOCYTES % 5.3 % (4.4-11.3); NEUTROPHILS # (AUTO) 14.1 (2.1-6.9); NEUTROPHILS % 86.9 % (38.7-80.0); PLATELET COUNT 193 x10e3/uL (140-360); RED CELL DISTRIBUTION WIDTH 13.2 % (11.7-14.4)
[2020-06-19 15:58] LABS: ALBUMIN 2.1 g/dL (3.5-5.0); ALBUMIN/GLOBULIN RATIO 0.5 (0.8-2.0); CALCIUM 7.1 mg/dL (8.4-10.2); CREATININE, SERUM 1.47 mg/dL (0.57-1.11); MAGNESIUM 1.2 MG/DL (1.3-2.1)
[2020-06-19 16:37] LABS: ABG PH 7.35 (7.35-7.45)
[2020-06-19 16:38] LABS: ABG HCO3 16 mmol/L (22-26); ABG PCO2 30 mmHg (35-45); ABG PO2 193 mmHg (80-105); ABG TCO2 17
[2020-06-19 20:12] LABS: ABG PCO2 24 mmHg (35-45); ABG PH 7.46 (7.35-7.45)
[2020-06-19 20:13] LABS: ABG HCO3 17 mmol/L (22-26); ABG PO2 180 mmHg (80-105)
[2020-06-19] MEDS: HYDROCODONE/APAP 5MG-325MG TAB PO PRN (21:40)
[2020-06-19] MEDS: FUROSEMIDE INJ 10 MG/ML 4 ML VIAL IV SCH (22:01)
[2020-06-20] VITALS (18 sets, daily range): BP systolic 122–174; BP diastolic 62–91
[2020-06-20] MEDS: HYDROCODONE/APAP 5MG-325MG TAB PO PRN (03:58)
[2020-06-20 06:41] LABS: BASOPHILS # (AUTO) 0.1 (0.0-0.1); BASOPHILS % 0.4 % (0.0-1.0); EOSINOPHILS # (AUTO) 0.1 (0.0-0.4); EOSINOPHILS % 0.8 % (0.0-6.0); HEMATOCRIT 25.8 % (34.2-44.1); HEMOGLOBIN 7.8 g/dL (12.0-16.0); LYMPHOCYTES # (AUTO) 2.7 (1.0-3.2); LYMPHOCYTES % 22.8 % (18.0-39.1); MEAN CORPUSCULAR HEMOGLOBIN 29.1 pg (28-32); MEAN CORPUSCULAR HGB CONC 30.2 g/dL (31-35); MEAN CORPUSCULAR VOLUME 96.3 fL (81-99); MONOCYTES % 8.7 % (4.4-11.3); NEUTROPHILS # (AUTO) 7.9 (2.1-6.9); NEUTROPHILS % 66.4 % (38.7-80.0); PLATELET COUNT 192 x10e3/uL (140-360); RED BLOOD COUNT 2.68 x10e6/uL (3.6-5.1); RED CELL DISTRIBUTION WIDTH 13.2 % (11.7-14.4)
[2020-06-20 07:15] LABS: ANION GAP 14.1 mmol/L (8-16); CALCIUM 7.2 mg/dL (8.4-10.2); CREATININE, SERUM 1.33 mg/dL (0.57-1.11); POTASSIUM 4.1 mmol/L (3.5-5.1)
[2020-06-20] MEDS ORDERED: NOREPINEPHRINE INJ 4MG/4ML 16 MG in DEXTROSE 5% 250ML 250 ML IV SCH (07:30)
[2020-06-20] MEDS: PANTOPRAZOLE SOD 40 MG TABEC PO SCH (07:30)
[2020-06-20] MEDS: INSULIN REGULAR, HUMAN 100 UNIT/1 ML 3ML VIAL SQ SCH ×4 (07:30→21:00)
[2020-06-20 07:38] LABS: MAGNESIUM 1.1 MG/DL (1.3-2.1)
[2020-06-20] MEDS: SODIUM BICARBONATE 650 MG TAB PO SCH ×2 (09:00→17:00)
[2020-06-20] MEDS: ACETAMINOPHEN 325 MG TAB PO SCH (09:00)
[2020-06-20] MEDS: FUROSEMIDE INJ 10 MG/ML 4 ML VIAL IV SCH (09:00)
[2020-06-20] MEDS: IRON SUCROSE 100 MG in SODIUM CHLORIDE 0.9% 100 ML 100 ML IV SCH (09:30)
[2020-06-20] MEDS: MEROPENEM 500MG/ NS 50ML 50 ML IV SCH ×2 (11:00→23:05)
[2020-06-20] MEDS ORDERED: IBUPROFEN 400 MG TAB ONE (12:30)
[2020-06-20] MEDS ORDERED: SODIUM CHLORIDE 0.9% 1000ML 1,000 ML ONE (14:47)
[2020-06-20] MEDS ORDERED: MAGNESIUM SULF 1GRAM/DEXTROSE 300 ML IV ONE (17:00)
[2020-06-20] MEDS ORDERED: MAGNESIUM OXIDE 400 MG TAB PO NR (17:00)
[2020-06-20] MEDS ORDERED: MAGNESIUM OXIDE 400 MG TAB ONE (17:21)
[2020-06-20] MEDS ORDERED: SODIUM CHLORIDE 0.9% 100 ML ONE (21:58)
[2020-06-21 00:43] VITALS: BP 150/79
[2020-06-21] MEDS: HYDROCODONE/APAP 5MG-325MG TAB PO PRN (00:48)
[2020-06-21 05:52] VITALS: BP 158/76
[2020-06-21 06:04] LABS: ANION GAP 14.3 mmol/L (8-16); CALCIUM 7.2 mg/dL (8.4-10.2); CREATININE, SERUM 1.56 mg/dL (0.57-1.11); MAGNESIUM 1.2 MG/DL (1.3-2.1); POTASSIUM 4.3 mmol/L (3.5-5.1)
[2020-06-21] MEDS: INSULIN REGULAR, HUMAN 100 UNIT/1 ML 3ML VIAL SQ SCH ×4 (07:30→21:59)
[2020-06-21 08:13] VITALS: BP 143/74
[2020-06-21] MEDS: PANTOPRAZOLE SOD 40 MG TABEC PO SCH (08:30)
[2020-06-21 08:53] VITALS: BP 143/74
[2020-06-21] MEDS ORDERED: MAGNESIUM SULFATE 2GM/50ML 50 ML IV ONE (09:00)
[2020-06-21] MEDS: MAGNESIUM OXIDE 400 MG TAB PO SCH ×2 (09:36→17:30)
[2020-06-21] MEDS: SODIUM BICARBONATE 650 MG TAB PO SCH (09:36)
[2020-06-21] MEDS: IRON SUCROSE 100 MG in SODIUM CHLORIDE 0.9% 100 ML 100 ML IV SCH (09:36)
[2020-06-21] MEDS: FUROSEMIDE 40 MG TAB PO SCH (09:36)
[2020-06-21] MEDS: MEROPENEM 500MG/ NS 50ML 50 ML IV SCH ×2 (12:00→21:54)
[2020-06-21] MEDS ORDERED: MAGNESIUM SULF 1GRAM/DEXTROSE 100 ML IV ONE (17:00)
[2020-06-21 19:45] VITALS: BP 133/70
[2020-06-21 19:59] VITALS: BP 133/70
[2020-06-21] MEDS: CALCIUM CARBONATE 500 MG CHEWABLE TABS PO SCH (21:54)
[2020-06-22 00:18] VITALS: BP 146/64
[2020-06-22 05:40] VITALS: BP 135/75
[2020-06-22 06:21] LABS: ANION GAP 12.2 mmol/L (8-16); CALCIUM 7.5 mg/dL (8.4-10.2); CREATININE, SERUM 1.55 mg/dL (0.57-1.11); POTASSIUM 4.2 mmol/L (3.5-5.1)
[2020-06-22] MEDS: INSULIN REGULAR, HUMAN 100 UNIT/1 ML 3ML VIAL SQ SCH ×4 (07:30→20:38)
[2020-06-22 08:14] VITALS: BP 153/72
[2020-06-22] MEDS: PANTOPRAZOLE SOD 40 MG TABEC PO SCH (08:30)
[2020-06-22] MEDS: FUROSEMIDE 40 MG TAB PO SCH (09:28)
[2020-06-22] MEDS: CALCIUM CARBONATE 500 MG CHEWABLE TABS PO SCH ×3 (09:28→20:22)
[2020-06-22] MEDS: MAGNESIUM OXIDE 400 MG TAB PO SCH ×2 (09:28→17:00)
[2020-06-22] MEDS: TRAMADOL HCL 50 MG TAB PO PRN ×2 (09:29→21:00)
[2020-06-22] MEDS: MEROPENEM 500MG/ NS 50ML 50 ML IV SCH ×2 (12:00→23:01)
[2020-06-22] MEDS ORDERED: ONDANSETRON HCL 4 MG ORAL DISINTEGRATING TAB PO PRN (15:00)
[2020-06-22 15:57] VITALS: BP 151/70
[2020-06-22 20:00] VITALS: BP 149/74
[2020-06-23] VITALS (8 sets, daily range): BP systolic 93–173; BP diastolic 47–82
[2020-06-23 05:28] LABS: ANION GAP 14.3 mmol/L (8-16); CALCIUM 8.1 mg/dL (8.4-10.2); CREATININE, SERUM 1.54 mg/dL (0.57-1.11); POTASSIUM 4.3 mmol/L (3.5-5.1)
[2020-06-23] MEDS: PANTOPRAZOLE SOD 40 MG TABEC PO SCH (07:38)
[2020-06-23] MEDS: INSULIN REGULAR, HUMAN 100 UNIT/1 ML 3ML VIAL SQ SCH ×4 (07:39→20:41)
[2020-06-23] MEDS: CALCIUM CARBONATE 500 MG CHEWABLE TABS PO SCH ×2 (08:05→15:15)
[2020-06-23] MEDS: MAGNESIUM OXIDE 400 MG TAB PO SCH (08:05)
[2020-06-23] MEDS: FUROSEMIDE 40 MG TAB PO SCH (08:05)
[2020-06-23] MEDS: TRAMADOL HCL 50 MG TAB PO PRN (08:06)
[2020-06-23] MEDS: MEROPENEM 500MG/ NS 50ML 50 ML IV SCH ×2 (12:00→22:28)
[2020-06-24] VITALS: BP 137/55
[2020-06-24 06:03] LABS: ANION GAP 14.4 mmol/L (8-16); CALCIUM 8.2 mg/dL (8.4-10.2); CREATININE, SERUM 1.63 mg/dL (0.57-1.11); POTASSIUM 4.4 mmol/L (3.5-5.1)
[2020-06-24] MEDS: INSULIN REGULAR, HUMAN 100 UNIT/1 ML 3ML VIAL SQ SCH ×3 (07:30→21:00)
[2020-06-24 07:52] VITALS: BP 174/74
[2020-06-24] MEDS: CALCIUM CARBONATE 500 MG CHEWABLE TABS PO SCH (08:27)
[2020-06-24] MEDS: PANTOPRAZOLE SOD 40 MG TABEC PO SCH (08:33)
[2020-06-24] MEDS: FUROSEMIDE 40 MG TAB PO SCH (08:33)
[2020-06-24 12:03] VITALS: BP 154/69
[2020-06-24] MEDS: MEROPENEM 500MG/ NS 50ML 50 ML IV SCH ×2 (12:17→23:00)
[2020-06-24] MEDS ORDERED: FUROSEMIDE INJ 10 MG/ML 4 ML VIAL IV ONE (13:15)
[2020-06-24] MEDS: TRAMADOL HCL 50 MG TAB PO PRN (15:45)
[2020-06-24 15:59] VITALS: BP 163/75
[2020-06-24 20:00] VITALS: BP 162/75
[2020-06-24] MEDS: ALBUTEROL/IPRATROPIUM 3 ML NEB NEB PRN (21:05)
[2020-06-24 22:23] VITALS: BP 162/75
[2020-06-25] VITALS: BP 139/76
[2020-06-25 04:00] VITALS: BP 173/69
[2020-06-25 06:22] LABS: BASOPHILS # (AUTO) 0.1 (0.0-0.1); BASOPHILS % 0.6 % (0.0-1.0); EOSINOPHILS # (AUTO) 0.2 (0.0-0.4); EOSINOPHILS % 2.3 % (0.0-6.0); HEMATOCRIT 27.4 % (34.2-44.1); HEMOGLOBIN 8.4 g/dL (12.0-16.0); LYMPHOCYTES # (AUTO) 3.3 (1.0-3.2); LYMPHOCYTES % 32.3 % (18.0-39.1); MEAN CORPUSCULAR HEMOGLOBIN 29.6 pg (28-32); MEAN CORPUSCULAR HGB CONC 30.7 g/dL (31-35); MEAN CORPUSCULAR VOLUME 96.5 fL (81-99); MONOCYTES # (AUTO) 0.9 (0.2-0.8); MONOCYTES % 8.7 % (4.4-11.3); NEUTROPHILS # (AUTO) 5.5 (2.1-6.9); NEUTROPHILS % 54.5 % (38.7-80.0); PLATELET COUNT 335 x10e3/uL (140-360); RED BLOOD COUNT 2.84 x10e6/uL (3.6-5.1); RED CELL DISTRIBUTION WIDTH 13.1 % (11.7-14.4)
[2020-06-25] MEDS: ALBUTEROL/IPRATROPIUM 3 ML NEB NEB PRN (06:55)
[2020-06-25 06:58] LABS: ANION GAP 14.4 mmol/L (8-16); CALCIUM 7.9 mg/dL (8.4-10.2); CREATININE, SERUM 1.41 mg/dL (0.57-1.11); MAGNESIUM 1.8 MG/DL (1.3-2.1); POTASSIUM 4.4 mmol/L (3.5-5.1)
[2020-06-25] MEDS: INSULIN REGULAR, HUMAN 100 UNIT/1 ML 3ML VIAL SQ SCH ×2 (07:30→12:00)
[2020-06-25 07:43] VITALS: BP 167/86
[2020-06-25] MEDS: FUROSEMIDE 40 MG TAB PO SCH (08:46)
[2020-06-25] MEDS: PANTOPRAZOLE SOD 40 MG TABEC PO SCH (08:46)
[2020-06-25] MEDS: CALCIUM CARBONATE 500 MG CHEWABLE TABS PO SCH (08:46)
[2020-06-25 08:47] VITALS: BP 167/86
[2020-06-25] MEDS: MEROPENEM 500MG/ NS 50ML 50 ML IV SCH (11:00)
[2020-06-25 11:26] VITALS: BP 183/79
[2020-06-25] MEDS ORDERED: FUROSEMIDE INJ 10 MG/ML 4 ML VIAL IV ONE (12:30)
[2020-06-25] MEDS ORDERED: AMLODIPINE BESYLATE 5 MG TAB PO ONE (12:30)
== END 2020-06-25 15:40 | disposition home or self-care (01) | DRG 871 ==
LOC: ER 20:35 → ERHOLD 23:51 → MED/SURG2 06-17 01:41 → ICU 06-19 14:26 → MED/SURG2 06-20 20:15
PROVIDERS: ADMIT Internal Medicine; ATTEND Internal Medicine
PROC: 0BH17EZ Insertion of Endotracheal Airway into Trachea, Via Natural or Artificial Opening (ICD-10-PCS; principal; 2020-06-19)
PROC: 5A1935Z Respiratory Ventilation, Less than 24 Consecutive Hours (ICD-10-PCS; 2020-06-19)
PROC: 5A12012 Performance of Cardiac Output, Single, Manual (ICD-10-PCS; 2020-06-19)
DX: A41.51 Sepsis due to Escherichia coli [E. coli] (principal); R65.21 Severe sepsis with septic shock; J96.00 Acute respiratory failure, unspecified whether with hypoxia or hypercapnia; I46.9 Cardiac arrest, cause unspecified; N17.0 Acute kidney failure with tubular necrosis; E87.2 Acidosis; I13.0 Hypertensive heart and chronic kidney disease with heart failure and stage 1 through stage 4 chronic kidney disease, or unspecified chronic kidney disease; I50.32 Chronic diastolic (congestive) heart failure; N12 Tubulo-interstitial nephritis, not specified as acute or chronic; K50.90 Crohn's disease, unspecified, without complications; Z16.12 Extended spectrum beta lactamase (ESBL) resistance; N18.30 Chronic kidney disease, stage 3 unspecified; E87.5 Hyperkalemia; E86.0 Dehydration; R33.9 Retention of urine, unspecified; I25.83 Coronary atherosclerosis due to lipid rich plaque; Z95.5 Presence of coronary angioplasty implant and graft; E11.319 Type 2 diabetes mellitus with unspecified diabetic retinopathy without macular edema; I65.29 Occlusion and stenosis of unspecified carotid artery; E83.42 Hypomagnesemia; T39.1X5A Adverse effect of 4-Aminophenol derivatives, initial encounter; T45.0X5A Adverse effect of antiallergic and antiemetic drugs, initial encounter; E83.51 Hypocalcemia
CPT/HCPCS: 36415; 36600; 70450; 71045; 71250; 74176; 80048; 80053; 80061; 81001; 82040; 82607; 82746; 82805; 82948; 83036; 83540; 83605; 83735; 84100; 84443; 84466; 85025; 85610; 85730; 87040; 87071; 87086; 87186; 87205; 92950; 93005; 93306; 93880; 94002; 94640; 96372; 99251; 99284; J0171; J0330; J0360; J0696; J1756; J1817; J1940; J2185; J2405; J3475; J7030; J7050; J7799; Q0162; U0002

== ENCOUNTER → 2024-09-16 | Outpatient (REF) | payer MEDICARE ==
[~2024-09-16] MED LIST changes: +FOLIC ACID0.4 MG PO; +LISINOPRIL2.5 MG PO
== END ==
LOC: US 10:35
PROVIDERS: ATTEND Internal Medicine Nephrology
DX: N18.30 Chronic kidney disease, stage 3 unspecified (principal)
CPT/HCPCS: 76770